=== PATIENT | female | born 1950 | race Caucasian/White ===

== ENCOUNTER 2019-12-22 08:28 | Outpatient (REF) | payer MEDICARE, SELFPAY ==
--- NOTE | 2019-12-22 | US_ITS ---
EXAMINATION: US RETROPERITONEAL LIMITED (AORTA) CLINICAL INFORMATION: AAA. COMPARISON: None TECHNIQUE: Cullen-scale, color Doppler and spectral Doppler evaluation of the abdominal aorta. FINDINGS: The aorta is normal. The measurements of the aorta in maximum AP and transverse dimensions respectively are as follows: Proximal: 2.2 x 1.9 cm. Mid: 1.7 x 1.6 cm. Distal: 1.4 x 1.3 cm. PSV: 80.7 cm/s. The measurements of the common iliac arteries in maximum AP and TRV dimensions are as follows: Right Common Iliac Artery: 0.9 x 0.7 cm. Left Common Iliac Artery: 0.9 x 0.8 cm. Incidental findings: The visualized portion of the CBD is dilated measuring 1 cm. In the visualized portion of the lower aspect liver, mild intrahepatic biliary duct dilatation is seen. Pancreatic duct measures 0.3 cm. IMPRESSION: 1. Normal caliber of the aorta. 2. Incidental findings, incompletely evaluated, includes dilatation of the intrahepatic and extrahepatic bile ducts. Previous MRI abdomen 07/08/2014 documented biliary duct dilatation, as well. Pancreatic duct is borderline prominent measuring 0.3 cm. Further evaluation with dedicated abdominal ultrasound or MRI as clinically warranted.
== END 2019-12-22 08:29 | disposition home or self-care (01) ==
LOC: HO.US 08:28
PROVIDERS: PCP Internal Medicine; Visit Provider Internal Medicine
DX: I71.4 Abdominal aortic aneurysm, without rupture (principal)
CPT/HCPCS: 76775

== ENCOUNTER → 2020-12-13 12:46 | Outpatient (REF) | payer MEDICARE, SELFPAY ==
--- NOTE | 2020-12-13 13:00 | CA_ITS ---
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 The visually estimated ejection fraction is between 65-70%. - There is moderate mitral annular calcification. There is mild mitral valve regurgitation. Findings Left Ventricle Normal left ventricular cavity size. There is normal left ventricular wall thickness. The left ventricular systolic function is normal. The visually estimated ejection fraction is between 65-70%. Possible basal inferior hypokinesis. Evidence of late diastolic filling noted; reduced mitral annular velocities; however normal left atrial size and no evidence of pulmonary hypertension; hence possible mild to moderate diastolic dysfunction. Right Ventricle Normal right ventricular cavity size and systolic function. TAPSE 2.34cm. Atria Both atria are normal in size. Aortic Valve There is a normal trileaflet aortic valve. There is no aortic valve stenosis. There is no aortic valve regurgitation. Mitral Valve There is moderate mitral annular calcification. There is mild mitral valve regurgitation. There is no mitral valve stenosis. Pulmonic Valve The pulmonic valve was not well visualized. Tricuspid Valve There is mild tricuspid valve regurgitation. The pulmonary artery systolic pressure is normal. Great Vessels The aortic annulus, sinuses of valsalva, and asc aorta are normal in size. Venous The inferior vena cava is normal in size and collapses greater than 50% with inspiration. Pericardium/Pleural There is no evidence of pericardial effusion. Prior Study Comparison No significant change compared to prior study dated: 05/17/2018. Measurements 2D Linear Measurements IVSd: 0.96 0.6-0.9/0.6-1.0 cm LVIDd: 4.07 3.9-5.3/4.2-5.9 cm LVIDd Index: 2.79 2.4-3.2/2.2-3.1 cm/m2 LVIDs: 2.38 2.0-3.6 cm LVPWd: 0.98 0.7-1.1 cm Ao Root: 2.90 2.1-3.5 cm LA Diam: 3.80 2.7-3.8/3.0-4.0 cm LAIDs Index: 2.60 1.5-2.3 cm/m2 LV Mass: 156.10 67-162/88-224 g LV Mass Index: 106.92 43-95/49-115 g/m2 LVOT Diam: 2.00 3.0+(-)1.3 cm 2D Systolic Function EF 4C: 81.40 >55% Mitral Valve MV Pk E: 1.03 MV PK A: 1.03 MV Decel Time: 141.00 E/A: 1.00 E'Lateral: 5.66 E'Medial: 6.42 E/E' Med: 16.00 E/E' Lat: 18.20 PHT: 41.00 MVA PHT: 5.37 Decel Archer: 7.30 Aortic Valve AoV Pk Donnie: 1.07 AoV Pk Grad: 5.00 LVOT LVOT Pk Donnie: 0.81 LVOT Mn Donnie: 0.55 LVOT VTI: 0.18 LVOT Pk Grad: 3.00 LVOT Mn Grad: 1.00 LVOT Diam: 2.00 LVOT Area: 3.14 Diastolic Function MV Pk E: 1.03 MV Pk A: 1.03 E/A: 1.00 E'Medial: 6.42 E/E' Med: 16.00 E' Laterial: 5.66 E/E' Lat: 18.20 Right Ventricle TAPSE (mm): 2.34 Tricuspid Valve TR Pk Donnie: 2.43 TR Pk Grad: 24.00 RA Press: 3.00 RVSP: 27.00 Great Vessels Aorta Ao Root-2D: 2.90 2.0-3.7 cm Ao Asc: 3.00 2.1-3.4 cm Ao Arch: 2.50 Updated in Other Vendor System with Status of Final Lenin Arcos MD electronically signed on 12/14/2020 11:36:18 AM with status of Final
--- NOTE | 2020-12-13 14:00 | ECG_ITS ---
Hook-up date: 2020-12-13 15:00:00 Duration: 47:07:00 Test Indications: Ectopic atrial rhythm. Medications: [id number] QRS complexes 4114 Ventricular ectopics which represent 3 % of total QRS comp. 72248 Supraventricular ectopics which represent 9 % of total QRS comp. * Paced QRS complexs which represent % of total QRS comp. VENTRICULAR ECTOPY 3879 Isolated 478 Bigeminal Cycles 107 Couplets 7 Runs 21 Beats in Runs 3 Beats LONGEST at 200 BPM at 17:25:07 2020-12-13 3 Beats FASTEST at 211 BPM at 17:27:01 2020-12-13 SUPRAVENTRICULAR ECTOPY 8969 Isolated 817 Couplets 99 Runs 349 Beats in Runs 11 Beats LONGEST at 127 BPM at 18:13:43 2020-12-13 3 Beats FASTEST at 182 BPM at 17:38:00 2020-12-13 HEART RATES 48 MIN at 23:49:42 2020-12-13 78 AVG 131 MAX at 20:16:55 2020-12-13 LONGEST RR 1.7200 secs at 23:39:49 2020-12-13 S-T LEVELS Channel 1 - 128 mm at 15:00:00 2020-12-13 - 128 mm at 15:00:00 2020-12-13 Channel 2 - 128 mm at 15:00:00 2020-12-13 - 128 mm at 15:00:00 2020-12-13 Channel 3 - 128 mm at 03:41:91 -- - 128 mm at 03:41:91 Underlying rhthm ectopic atrial rhythm; Average ventricular rate 75/min; range 48-131/min; Difficult to assess supraventricular ectopy burden due to the underlying rhythm being ectopic atrial; there are normal polarity P waves seen at times, that could be sinus; additionally, possible another focus of ectopy with short runs, longest 11 beats at 127/min; Occasional PVCs (4%); mostly isolated; some couplets, bigeminal cycles; longest 3 beats; Palpitations in diary possibly from PACs/PVCs. Referred By: Emilie Cortes Overread By: EMILIE CORTES
== END ==
LOC: HO.CARD 12:46
PROVIDERS: Visit Provider Internal Medicine
DX: I49.1 Atrial premature depolarization (principal)
CPT/HCPCS: 93225; 93226; 93306

== ENCOUNTER → 2021-01-10 12:48 | Outpatient (BNVA) | payer MEDICARE, SELFPAY | PROVIDERS: PCP Internal Medicine; Referring Provider Internal Medicine; Visit Provider Internal Medicine | DX: I49.1 Atrial premature depolarization (principal); I10 Essential (primary) hypertension; I05.9 Rheumatic mitral valve disease, unspecified; Z87.74 Personal history of (corrected) congenital malformations of heart and circulatory system | CPT/HCPCS: 93005; 99212 ==

== ENCOUNTER 2021-01-12 13:34 | Outpatient (REF) | payer MEDICARE, SELFPAY ==
--- NOTE | ~2021-01-12 | MM_ITS ---
EXAMINATION: BONE DENSITOMETRY CLINICAL INDICATION: Postmenopausal. COMPARISON: Previous BD dated 01/14/2018 and baseline BD dated 08/30/2008. TECHNIQUE: Using a [employer] DXA System (software version: 13.1) manufactured by [employer], dual-energy x-ray absorptiometry was performed of the lumbar spine and left hip. The images are of good technical quality. Summary results are attached. FINDINGS: AP SPINE L1-L4: Current: BMD 0.750 g/cm2, Z-score -1.3, T-score -3.6, osteoporosis, 2.7% decrease from previous, 18.7% decrease from baseline (<5% change is not significant). Prior: BMD 0.771 g/cm2. Baseline: BMD 0.922 g/cm2. LEFT FEMUR, NECK: Current: BMD 0.629 g/cm2, Z-score -0.9, T-score -2.9, osteoporosis. Prior: BMD 0.690 g/cm2. Baseline: BMD 0.765 g/cm2. LEFT FEMUR, TOTAL: Current: BMD 0.581 g/cm2, Z-score -1.6, T-score -3.4, osteoporosis, 10.2% decrease from previous, 22.4% decrease from baseline (<5% change is not significant). Prior: BMD 0.647 g/cm2. Baseline: BMD 0.749 g/cm2. IDENTIFIED RISK FACTORS: Osteoporosis, tobacco use (current smoker), low body weight, family history (parental hip fracture), history of fracture (adult), menopause. HISTORY OF FRACTURE: Sacrum. MEDICATIONS: Calcium supplements or multivitamin, vitamin D. MM/XR DEXA axial skeleton IMPRESSION: 1. DIAGNOSIS: Osteoporosis based on the lowest T-score value of -3.6 in the lumbar spine applying World Health Organization criteria. 2. 2. 10-YEAR FRACTURE RISK PREDICTION, FRAX: According to the guidelines, FRAX calculation should only be performed on patients in the osteopenia bone density category. Therefore, FRAX was not performed on this patient. 3. Treatment Recommendations: NOF guidelines recommend consideration for treatment in postmenopausal women and men age 50 and older presenting with the following: -A hip or vertebral (clinical or morphometric) fracture. -T-score less than or equal to -2.5 at the femoral neck or spine after appropriate evaluation to exclude secondary causes. -Low bone mass at the hip or spine and a 10-year fracture probability by FRAX of greater than or equal to 3% for hip fracture or greater than or equal to 20% for major osteoporotic fracture based on the [place] adapted WHO algorithm. 4. Other Recommendations: All treatment decisions require clinical judgment and consideration of individual patient factors, including patient preferences, comorbidities, previous drug use, risk factors not captured in the FRAX model (e.g. frailty, falls, vitamin D deficiency, increased bone turnover, interval significant decline in bone density) and possible under or overestimation of fracture risk by FRAX. Additional medical evaluation for secondary cause of low bone mineral density may be appropriate. FUTURE SCAN RECOMMENDATION: People with diagnosed cases of osteoporosis or at high risk for fracture should have regular bone mineral density tests. For patients eligible for Medicare, routine testing is allowed once every 2 years. The testing frequency can be increased to one year for patients who have rapidly progressing disease, those who are receiving or discontinuing medical therapy to restore bone mass, or have additional risk factors.
--- NOTE | ~2021-01-12 | MM_ITS ---
EXAMINATION: MM SCREENING DIGITAL BREAST TOMOSYNTHESIS, BILATERAL CLINICAL INFORMATION: Screening. Asymptomatic. The lifetime risk of breast cancer based on the Tyrer-Cuzick Model is 3.7%. COMPARISON: Mammography: November 03, 2015 and studies dating back to January 04, 2011 TECHNIQUE: Digital breast tomosynthesis is performed in both the craniocaudal and mediolateral oblique views along with computer-aided detection (CAD). Synthesized 2D images are generated from the tomosynthesis. FINDINGS: There are scattered areas of fibroglandular density (ACR BI-RADS breast composition Category b). There are no significant masses, abnormal calcifications, or other abnormalities. Stable region of mild architectural distortion seen upper outer aspect of the left breast. MM/MM tomosynthesis screening BI IMPRESSION: There are no significant changes from prior study. ASSESSMENT: BI-RADS 2: Benign RECOMMENDATION: Routine annual mammography screening. This patient's information was entered into a reminder system with a target due date for their next mammogram.
== END 2021-01-12 13:35 | disposition home or self-care (01) ==
LOC: HO.MAMMO 13:34
PROVIDERS: Visit Provider Internal Medicine
DX: Z12.31 Encounter for screening mammogram for malignant neoplasm of breast (principal); Z13.820 Encounter for screening for osteoporosis; M81.0 Age-related osteoporosis without current pathological fracture; Z78.0 Asymptomatic menopausal state; F17.200 Nicotine dependence, unspecified, uncomplicated; Z79.899 Other long term (current) drug therapy
CPT/HCPCS: 77063; 77067; 77080

== ENCOUNTER → 2021-12-19 11:04 | Outpatient (REF) | payer MEDICARE, SELFPAY ==
--- NOTE | 2021-12-19 11:07 | HM_ITS ---
Conclusion: 1. Patient was monitored for total period of 3 days 2. Baseline was normal sinus rhythm with average heart rate of 66 beats per minute 3. Frequent sinus bradycardia with 36% of the time heart rate below 60 beats per minute 4. No significant pauses noted 5. Total of 4787 PACs noted accounting for 1.7% total beats account for frequent PACs. 6. Total of 1096 PVCs noted with 0.39% total beats account for occasional PVCs 7. One 3 beat shira of nonsustained VT noted 8. Patient reported 1 event correlated with isolated PACs. MTDD
== END ==
LOC: HO.CARD 11:04
PROVIDERS: PCP Internal Medicine; Visit Provider Internal Medicine
DX: I49.1 Atrial premature depolarization (principal)
CPT/HCPCS: 93242

== ENCOUNTER → 2022-01-15 14:06 | Outpatient (BNVA) | payer MEDICARE, SELFPAY | PROVIDERS: PCP Internal Medicine; Referring Provider Internal Medicine; Visit Provider Internal Medicine | DX: I49.1 Atrial premature depolarization (principal); I10 Essential (primary) hypertension; I05.9 Rheumatic mitral valve disease, unspecified; Z87.74 Personal history of (corrected) congenital malformations of heart and circulatory system | CPT/HCPCS: 93005; 99212 ==

== ENCOUNTER 2022-04-03 08:56 | Outpatient (REF) | payer MEDICARE, SELFPAY ==
--- NOTE | ~2022-04-03 | US_ITS ---
EXAMINATION: US ABDOMEN COMPLETE CLINICAL INFORMATION: Right upper quadrant pain. COMPARISON: Ultrasound aorta 12/22/2019. MRI abdomen 07/08/2014. Ultrasound abdomen 03/03/2013 and 02/02/2011. TECHNIQUE: Real-time imaging of the abdominal viscera. FINDINGS: PANCREAS: No abnormal mass or peripancreatic inflammatory change. ABDOMINAL AORTA: There is some calcified plaque present. No abdominal aortic aneurysm. INFERIOR VENA CAVA: Visualized portions are normal. LIVER: The liver is normal in size. The liver contour is normal. Parenchymal echogenicity is normal. No suspicious focal hepatic lesion. There is again noted to be mild intrahepatic bile duct dilatation. Dense calcification within the right lobe is seen which may be related to calcified granuloma. GALLBLADDER: Surgically absent. COMMON BILE DUCT: Normal in caliber measuring 0.8 cm in diameter. RIGHT KIDNEY: Normal. No hydronephrosis. No renal calculi or focal parenchymal lesions. The kidney measures 9.4 cm in maximum dimension. LEFT KIDNEY: Within the upper pole there is a 5 mm cyst which is too small to characterize but appears to be present to some degree on previous MRI of July 08, 2014. This does not require follow-up. No hydronephrosis or renal calculi. The kidney measures 9.5 cm in maximum dimension. SPLEEN: Normal. The spleen measures 8.0 cm in maximum dimension. FREE FLUID: None. US/US abdomen complete IMPRESSION: Stable mild intrahepatic bile duct dilatation.
[2022-04-03 11:47] LABS: MANUAL DIFF FLAG NO
[2022-04-03 12:03] LABS: Basophils Percent Auto 0.9 % (0-2); Eosinophils Absolute Auto 0.1 X10*3/uL (0.0-0.4); Eosinophils Percent Auto 1.8 % (0-4); Hematocrit 41.9 % (37.0-47.0); Hemoglobin 13.8 g/dl (12.0-16.0); Imm Gran Abs Auto 0.02 X10*3/uL (0.00-0.03); Imm Gran Pct Auto 0.5 % (0.0-0.4); Lymphocytes Absolute Auto 1.2 X10*3/uL (1.2-4.9); Lymphocytes Percent Auto 27.7 % (20-40); Mean Corpuscular HGB Conc 32.9 g/dl (31.0-35.0); Mean Corpuscular Hemoglobin 29.6 pg (27.0-33.0); Mean Corpuscular Volume 89.7 fL (80.0-98.0); Mean Platelet Volume 9.9 fL (9.4-12.3); Monocytes Absolute Auto 0.4 X10*3/uL (0.1-1.2); Monocytes Percent Auto 9.6 % (2-11); Neutrophils Absolute Auto 2.6 x10*3/uL (2.0-8.3); Neutrophils Percent Auto 59.5 % (45-73); Platelet Count 168 X10*3/uL (160-400); Red Blood Count 4.67 X10*6/uL (4.20-5.50); Red Cell Distribution Width 12.6 % (11.0-16.0); White Blood Count 4.4 X10*3/uL (4.8-10.8)
[2022-04-03 12:38] LABS: Alanine Aminotransferase 13 U/L (0-31); Albumin Level 4.3 g/dL (3.5-5.0); Alkaline Phosphatase 57 U/L (39-117); Anion Gap 12 (12-20); Aspartate Amino Transferase 18 U/L (5-31); Bilirubin Total 0.4 mg/dL (0.0-1.0); Blood Urea Nitrogen 14 mg/dL (9-16); Calcium 9.3 mg/dL (8.4-10.2); Carbon Dioxide 29 mmol/L (22-29); Chloride 105 mmol/L (96-108); Cholesterol 218 mg/dL; Estimated Glomerular Filt Rate > 60; Glucose Random 93 mg/dL (60-115); HDL Cholesterol 76 mg/dL; LDL Cholesterol Calculated 128 mg/dl; Potassium 3.9 mmol/L (3.3-5.1); Sodium 142 mmol/L (135-145); Total Protein 6.8 g/dL (6.5-8.0); Triglycerides 74 mg/dL
[2022-04-03 12:59] LABS: Free T4 (Free Thyroxine) 1.22 ng/dL (0.71-1.85); Thyroid Stimulating Hormone 1.65 uIU/mL (0.32-4.0); Vitamin D 25-OH Total 8.8 ng/mL (>30)
== END 2022-04-03 08:57 | disposition home or self-care (01) ==
LOC: HO.HMGCX 08:56
PROVIDERS: PCP Internal Medicine; Visit Provider Internal Medicine
DX: R10.11 Right upper quadrant pain (principal); E78.00 Pure hypercholesterolemia, unspecified; M79.641 Pain in right hand; R35.1 Nocturia; E55.9 Vitamin D deficiency, unspecified; Z90.49 Acquired absence of other specified parts of digestive tract
CPT/HCPCS: 36415; 76700; 80053; 80061; 82306; 84439; 84443; 85025

== ENCOUNTER 2022-06-26 09:25 | Outpatient (REF) | payer MEDICARE, SELFPAY ==
--- NOTE | ~2022-06-26 | XR_ITS ---
EXAMINATION: XR HAND, RIGHT CLINICAL INFORMATION: Pain COMPARISON: None available. TECHNIQUE: PA, lateral, and oblique views of the right hand. Note, the lateral and oblique view is suboptimal. FINDINGS: Bones are diffusely osteopenic. Mild osteoarthritis of the first metacarpophalangeal joint. Small well-corticated ossicles at the first interphalangeal joint, likely from prior trauma. There are no acute fractures or dislocations of the right hand. Soft tissue structures are within normal limits. XR/XR hand RT min 3V IMPRESSION: Diffuse osteopenia and mild osteoarthritis of the first metacarpal carpal phalangeal joint. No acute fractures.
== END 2022-06-26 09:26 | disposition home or self-care (01) ==
LOC: HO.HOSX 09:25
PROVIDERS: Visit Provider Orthopaedic Surgery
DX: M18.11 Unilateral primary osteoarthritis of first carpometacarpal joint, right hand (principal)
CPT/HCPCS: 73130; 99202

== ENCOUNTER → 2023-02-14 13:50 | Outpatient (REF) | payer MEDICARE, SELFPAY ==
--- NOTE | 2023-02-14 13:53 | CA_ITS ---
Transthoracic Echocardiogram Patient (Last, First, Middle): Lianna Boyer A Gender: Female Date of : 1950 Age: 72 Procedure Date: 02/14/2023 Procedure Type: Transthoracic Echocardiogram Location: OP Height: 154.94 cm Weight: 44. kg BSA: 1.39 m2 Heart Rate: 68 bpm BP: 120 / 75 mmHg Real Estate Assessor: KEY Funes MD: Lenin Arcos MD Author Agent: Ga Gore MD Symptoms: I05.9 - Rheumatic mitral valve disease, unspecified Study Quality: Adequate ECG Rhythm: Arrhythmia Conclusions: - 1. Normal LV ejection fraction 60 65% with impaired relaxation filling pattern 2. Mildly dilated left atrium 3. Moderate mitral calcification with [id number] mitral regurgitation 4. Mildly dilated ascending aorta 3.7 cm 5. Normal RV systolic pressure 6. No gross pericardial effusion Findings Left Ventricle Normal left ventricular size, thickness, and systolic function. The visually estimated ejection fraction is between 60-65%. Spectral Doppler is indicative of an impaired relaxation filling pattern. Peak GLS is -26.1%, although with off axis LV views maybe overestimated. Right Ventricle Normal right ventricular cavity size. Atria The left atrium is mildly dilated. Interatrial shunt cannot be excluded. The right atrium is normal in size. Aortic Valve The aortic valve structure and function is likely normal. There is no aortic valve stenosis. There is no aortic valve regurgitation. Mitral Valve There is mild anterior and moderate posterior mitral leaflet thickening. There is mild mitral annular calcification. There is mild to moderate mitral valve regurgitation. There is no mitral valve stenosis. Pulmonic Valve The pulmonic valve is likely normal. There is trace pulmonic valve regurgitation. Tricuspid Valve Normal tricuspid valve structure. There is mild tricuspid valve regurgitation. The right ventricular systolic pressure is normal. The right ventricular systolic pressure is 25 mmHg. Normal right atrial pressure. There is no evidence of pulmonary hypertension. Great Vessels The pulmonary artery was not well visualized. There is mild dilatation of the ascending aorta. Venous The inferior vena cava is normal in size and collapses greater than 50% with inspiration. Pericardium/Pleural There is no evidence of pericardial effusion. Prior Study Comparison No significant change compared to prior study dated: 12/13/2020. Measurements 2D Linear Measurements IVSd: 1.22 0.6-0.9/0.6-1.0 cm LVIDd: 3.33 3.9-5.3/4.2-5.9 cm LVIDd Index: 2.40 2.4-3.2/2.2-3.1 cm/m2 LVIDs: 1.99 2.0-3.6 cm LVPWd: 1.05 0.7-1.1 cm LA Diam: 3.10 2.7-3.8/3.0-4.0 cm LAIDs Index: 2.23 1.5-2.3 cm/m2 LV Mass: 144.24 67-162/88-224 g LV Mass Index: 103.77 43-95/49-115 g/m2 LVOT Diam: 1.70 3.0+(-)1.3 cm 2D Systolic Function EF 4C: 70.10 >55% EF 2C: 61.70 >55% EF BiP: 65.80 >55% Aortic Valve AoV Pk Donnie: 1.05 AoV Mn Donnie: 0.67 AoV VTI: 0.20 AoV Pk Grad: 4.00 Aov Mn Grad: 2.00 COSTA Cont.VTI: 1.71 LVOT LVOT Pk Donnie: 0.72 LVOT Mn Donnie: 0.50 LVOT VTI: 0.15 LVOT Pk Grad: 2.00 LVOT Mn Grad: 1.00 LVOT Diam: 1.70 LVOT Area: 2.27 Right Ventricle TAPSE (mm): 15.30 TVS' Donnie: 10.60 Tricuspid Valve TR Pk Donnie: 2.37 TR Pk Grad: 22.00 RA Press: 3.00 RVSP: 25.00 Great Vessels Aorta Sinus of Valsalva: 3.60 2.0-3.5 cm Ao Asc: 3.70 2.1-3.4 cm Pulmonary Valve PV Pk Donnie: 1.00 Peak PV Grad: 4.00 Updated in Other Vendor System with Status of Final Ga Gore MD electronically signed on 02/15/2023 1:55:31 PM with status of Final
--- NOTE | 2023-02-14 13:53 | HM_ITS ---
* Total monitoring time 3 days. * Underlying rhythm is sinus. Average ventricular rate 71/Min. Range 48 to 108/Min. * Frequent supraventricular ectopy with a burden of 3.6%. Brief runs noted. Longest is 25 beats. Fastest 190/Min. * Frequent ventricular ectopy with a burden of 1.9%. 5 short runs. Longest 4 beats. Multiple morphologies. * No significant pauses or AV blocks. * Palpitations in patient diary correlates with supraventricular and ventricular ectopy. MTDD
== END ==
LOC: HO.CARD 13:50
PROVIDERS: PCP Internal Medicine; Visit Provider Internal Medicine
DX: I50.9 Heart failure, unspecified (principal); I49.1 Atrial premature depolarization; Z87.74 Personal history of (corrected) congenital malformations of heart and circulatory system
CPT/HCPCS: 93242; 93306; 93356

== ENCOUNTER → 2023-02-14 13:53 | Outpatient (BNV) | payer MEDICARE, SELFPAY | PROVIDERS: PCP Internal Medicine; Visit Provider Internal Medicine Cardiovascular Disease | DX: I47.10 Supraventricular tachycardia, unspecified (principal) | CPT/HCPCS: 93244; 93306 ==

== ENCOUNTER 2023-04-01 14:05 | Outpatient (AMB) | payer MEDICARE, SELFPAY ==
--- NOTE | 2023-04-01 14:07 | MHC.OFFVIS ---
Intake Vital Signs 04/01/23 14:11 Height 5 ft 2 in Weight 96 lb 8.999 oz BMI 17.7 BP 130/72 Blood Pressure Location Lt brachial Position Sitting Pulse 70 Intake Visit Reasons: follow up echo/holter Intake Note: follow up w/ EKG [place] Required: No Accompanied by: Self / Same As Patient Allergies Iodinated Contrast Media [IV Dye, Iodine Containing] Allergy (Severe, Verified 04/01/23 14:11) ANAPHYLAXIS Medication List - Last Reconciled 04/01/23 by Lenin Arcos MD amlodipine 5 mg PO DAILY calcium carbonate-vitamin D3 600 mg-20 mcg (800 unit) (Caltrate 600 plus D) 1 tab PO DAILY cholecalciferol (vitamin D3) 75 mcg PO DAILY clonazepam (Klonopin) 1 mg PO BID oxycodone 5 mg PO Q8H PRN HPI HPI Comments History of Present Illness Details Lianna returns for follow-up. She has a history of remote ASD closure from several decades ago. Otherwise, has hypertension for which she is on amlodipine. She also has undergone a cardiac catheterization few years ago that was unremarkable. Overall, no new concerns. She states she is feeling fine. REPLACED BY [facility] Medical History Ectopic atrial rhythm Essential hypertension Surgical History History of cholecystectomy History of umbilical hernia repair History of craniotomy History of cardiac catheterization (~05/30/18) History of atrial septal defect repair Family History Father No problems noted. Mother No problems noted. 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 Review of Systems Const Denies weakness ENT Denies dizziness Card Denies chest pain, Denies chest pain with activity, Denies syncope, Denies rapid heart rate, Denies pedal edema, Denies edema, Denies leg edema, Denies lightheadedness, Denies palpitations, Denies dyspnea, Denies dyspnea on exertion and Denies orthopnea Resp Denies cough, Denies dyspnea and Denies dyspnea on exertion GI Denies hematochezia and Denies change in stool character Musc Denies abnormal gait, Denies muscle cramps, Denies muscle weakness, Denies numbness, Denies radiating pain into limb and Denies tingling Neuro Denies abnormal gait, Denies dizziness, Denies syncope, Denies numbness, Denies tingling and Denies weakness Endo Denies palpitations Physical Exam Vital Signs: Last Vital Signs Pulse 70 04/01/23 14:11 BP 130/72 04/01/23 14:11 BMI result Body Mass Index 17.7 Const General: comfortable and no acute distress Orientation/consciousness: patient oriented x3 HEENT Other: Unremarkable Head: Yes normal to inspection Neck Neck: Yes normal visual inspection Chest Chest palpation & inspection: normal inspection of the chest Resp Auscultation: clear to auscultation bilaterally Cardio Palpation: normal PMI Heart sounds: S1 normal heart sound present, S2 normal heart sound present, no gallops, no murmurs and no rubs GI Palpation (GI): Soft to palpation Back/Spine/Pelvis Other: unremarkable Skin General skin exam: no rashes or lesions noted Neuro General: patient oriented x3 Extrem General: Yes normal to inspection Psych Mental Status: mental status grossly normal Office Procedures EKG Details: EKG with sinus rhythm at 70/Min; some PACs, lateral nonspecific ST-T changes. [id number], Complete Assessment & Plan Assessment & Plan (1) Ectopic atrial rhythm: Code(s): I49.1 - Atrial premature depolarization Plan: In the Holter, there is frequent supraventricular ectopy but no clear-cut evidence of atrial fibrillation. Will monitor periodically. (2) Essential hypertension: Code(s): I10 - Essential (primary) hypertension Plan: Continue amlodipine. (3) Status post atrial septal defect closure: Code(s): Z87.74 - Personal history of (corrected) congenital malformations of heart and circulatory system Plan: Remote procedure many decades ago. No recent issues. (4) Mitral annular calcification: Code(s): I05.9 - Rheumatic mitral valve disease, unspecified Plan: Moderate mitral annular calcification with [id number] mitral regurgitation. At this time, not hemodynamically significant. Can be monitored. Coding Level of Care Code Est Pt Level 4 (55847) Diagnoses Ectopic atrial rhythm I49.1 Essential hypertension I10 Status post atrial septal defect closure Z87.74 Mitral annular calcification I05.9 CPT Codes EKG - CPT: 09061-[id number], Complete ([id number])
[2023-04-01 14:11] VITALS: BP 130/72; PULSE 70; BMI 17.7
== END 2023-04-01 14:29 | disposition home or self-care (01) ==
PROVIDERS: PCP Internal Medicine; Visit Provider Internal Medicine
DX: I49.1 Atrial premature depolarization (principal); I10 Essential (primary) hypertension; Z87.74 Personal history of (corrected) congenital malformations of heart and circulatory system; I05.9 Rheumatic mitral valve disease, unspecified
CPT/HCPCS: 93010; 99214

== ENCOUNTER → 2023-04-01 14:05 | Outpatient (BNVA) | payer MEDICARE, SELFPAY | PROVIDERS: PCP Internal Medicine; Visit Provider Internal Medicine | DX: I49.1 Atrial premature depolarization (principal); I10 Essential (primary) hypertension; I05.9 Rheumatic mitral valve disease, unspecified; Z87.74 Personal history of (corrected) congenital malformations of heart and circulatory system | CPT/HCPCS: 93005; 99212 ==

== ENCOUNTER 2023-11-16 08:55 | Outpatient (REF) | payer MEDICARE, SELFPAY ==
--- NOTE | ~2023-11-16 | XR_ITS ---
EXAMINATION: XR CHEST 2 VIEWS CLINICAL INFORMATION: Cough. COMPARISON: Chest radiograph dated 05/16/2018. TECHNIQUE: Frontal and lateral views of the chest were obtained. FINDINGS: The heart, great vessels, pulmonary vasculature and mediastinum are normal. There has been a prior median sternotomy. The lungs show no focal infiltrate, effusion or pneumothorax. There is biapical pleural thickening. There is no acute osseous abnormality. XR/XR chest 2V IMPRESSION: No active cardiopulmonary disease. Electronically signed by: Bentley Smith MD 12/05/2023 04:55 PM EDT RP
[2023-11-16 11:09] LABS: MANUAL DIFF FLAG NO
[2023-11-16 11:17] LABS: Eosinophils Absolute Auto 0.1 X10*3/uL (0.0-0.4); Eosinophils Percent Auto 3.1 % (0-4); Hematocrit 42.9 % (37.0-47.0); Imm Gran Abs Auto 0.02 X10*3/uL (0.00-0.03); Imm Gran Pct Auto 0.5 % (0.0-0.4); Lymphocytes Percent Auto 23.9 % (20-40); Mean Corpuscular HGB Conc 32.6 g/dl (31.0-35.0); Mean Corpuscular Hemoglobin 29.2 pg (27.0-33.0); Mean Corpuscular Volume 89.6 fL (80.0-98.0); Mean Platelet Volume 10.6 fL (9.4-12.3); Monocytes Absolute Auto 0.4 X10*3/uL (0.1-1.2); Monocytes Percent Auto 8.4 % (2-11); Neutrophils Absolute Auto 2.7 x10*3/uL (2.0-8.3); Neutrophils Percent Auto 63.1 % (45-73); Platelet Count 159 X10*3/uL (160-400); Red Blood Count 4.79 X10*6/uL (4.20-5.50); White Blood Count 4.2 X10*3/uL (4.8-10.8)
[2023-11-16 11:27] LABS: Appearance Urine Clear; Color Urine Yellow; Glucose Urine UA Negative (Negative); Leukocyte Esterase Urine Small (1+) (Negative); Nitrite Urine Negative (Negative); PH 6.5 (5.0-9.0); UMIC TRIGGER UACC YES; Urine Blood Negative (Negative); Urine Ketones Negative (Negative); Urine Protein Negative (Neg-Trace)
[2023-11-16 11:42] LABS: Alanine Aminotransferase 19 U/L (0-31); Albumin Level 4.3 g/dL (3.5-5.0); Alkaline Phosphatase 65 U/L (39-117); Anion Gap 13 (12-20); Aspartate Amino Transferase 21 U/L (5-31); Bilirubin Total 0.4 mg/dL (0.0-1.0); Blood Urea Nitrogen 9 mg/dL (9-16); Calcium 9.8 mg/dL (8.4-10.2); Carbon Dioxide 28 mmol/L (22-29); Chloride 106 mmol/L (96-108); Cholesterol 183 mg/dL (<200); Estimated Glomerular Filt Rate > 60; Glucose Random 98 mg/dL (60-115); HDL Cholesterol 73 mg/dL (>40); LDL Cholesterol Calculated 94 mg/dL (<100); Sodium 143 mmol/L (135-145); Total Protein 7.1 g/dL (6.5-8.0); Triglycerides 82 mg/dL (<150)
[2023-11-16 11:55] LABS: Bacteria Urine None Seen (None Seen); Hyaline Casts Urine 0-2 /LPF (0-2); RBC Urine 0-2 /HPF (0-2); UACC Culture Trigger YES; WBC Urine 0-5 /HPF (0-5)
[2023-11-16 12:00] LABS: Free T4 (Free Thyroxine) 1.05 ng/dL (0.71-1.85); Vitamin D 25-OH Total 19.1 ng/mL (>30)
== END 2023-11-16 08:56 | disposition home or self-care (01) ==
LOC: HO.HMGCX 08:55
PROVIDERS: PCP Internal Medicine; Visit Provider Internal Medicine
DX: R05.2 Subacute cough (principal); I10 Essential (primary) hypertension; E78.00 Pure hypercholesterolemia, unspecified; E55.9 Vitamin D deficiency, unspecified; R35.1 Nocturia
CPT/HCPCS: 36415; 71046; 80053; 80061; 81001; 82306; 84439; 85025; 87086

== ENCOUNTER 2024-05-26 12:43 | Outpatient (AMB) | payer MEDICARE, SELFPAY ==
[2024-05-26 12:54] VITALS: BP 118/60; PULSE 77; BMI 17.3
--- NOTE | 2024-05-26 12:54 | A.OFFVIS_ITS ---
Vital Signs 05/26/24 12:54 Height 5 ft 2 in Weight 94 lb 12.78 oz BMI 17.3 BP 118/60 Blood Pressure Location Lt brachial Position Sitting Pulse 77 Pulse Source Monitor Intake Visit Reasons: 1 yr f/up Allergies Iodinated Contrast Media [IV Dye, Iodine Containing] Allergy (Severe, Verified 04/01/23 14:11) ANAPHYLAXIS Medication List - Last Reconciled 05/26/24 by Lenin Arcos MD amlodipine 5 mg PO DAILY calcium carbonate-vitamin D3 600 mg-20 mcg (800 unit) (Caltrate plus D) 1 tab PO DAILY cholecalciferol (vitamin D3) 75 mcg PO DAILY clonazepam (Klonopin) 1 mg PO BID oxycodone 5 mg PO Q8H PRN HPI Comments Details: Lianna returns for follow-up. She has a history of remote ASD closure from several decades ago. Has hypertension for which she is on amlodipine. She also has undergone a cardiac catheterization few years ago that was unremarkable. She states that she feels good. Rare palpitations but otherwise she feels fine for the most part. FOR[facility]LY [facility], LATER [facility] Medical History Ectopic atrial rhythm Essential hypertension Surgical History History of cholecystectomy History of umbilical hernia repair History of craniotomy History of cardiac catheterization (~05/30/18) History of atrial septal defect repair Family History Father No problems noted. Mother No problems noted. 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 Review of Systems Const Denies weakness ENT Denies dizziness Card Denies chest pain, Denies chest pain with activity, Denies syncope, Denies rapid heart rate, Denies pedal edema, Denies edema, Denies leg edema, Denies lightheadedness, Denies palpitations, Denies dyspnea, Denies dyspnea on exertion and Denies orthopnea Resp Denies cough, Denies dyspnea and Denies dyspnea on exertion GI Denies hematochezia and Denies change in stool character Musc Denies abnormal gait, Denies muscle cramps, Denies muscle weakness, Denies numbness, Denies radiating pain into limb and Denies tingling Neuro Denies abnormal gait, Denies dizziness, Denies syncope, Denies numbness, Denies tingling and Denies weakness Endo Denies palpitations Physical Exam Vital Signs: Last Vital Signs Pulse 77 05/26/24 12:54 BP 118/60 05/26/24 12:54 BMI result Body Mass Index 17.3 Const General: comfortable and no acute distress Orientation/consciousness: patient oriented x3 HEENT Other: Unremarkable Head: Yes normal to inspection Neck Neck: Yes normal visual inspection Chest Chest palpation & inspection: normal inspection of the chest Resp Auscultation: clear to auscultation bilaterally Cardio Palpation: normal PMI Heart sounds: S1 normal heart sound present, S2 normal heart sound present, no gallops, no murmurs and no rubs GI Palpation (GI): Soft to palpation Back/Spine/Pelvis Other: unremarkable Skin General skin exam: no rashes or lesions noted Neuro General: patient oriented x3 Extrem General: Yes normal to inspection Psych Mental Status: mental status grossly normal Office Procedures EKG Details: EKGs suggestive of atrial tachycardia with a 2-1 block. Atrial rate around 150/Min. [id number], Complete Assessment & Plan Assessment & Plan (1) Ectopic atrial rhythm: Code(s): I49.1 - Atrial premature depolarization Category: Medical Plan: In prior Holter, there is frequent supraventricular ectopy, but no clear-cut evidence of atrial fibrillation. Today's EKG shows atrial tachycardia with 2-1 block. Obtain Holter monitor. Repeat echocardiogram. (2) Essential hypertension: Code(s): I10 - Essential (primary) hypertension Category: Medical Plan: Continue amlodipine. (3) Status post atrial septal defect closure: Code(s): Z87.74 - Personal history of (corrected) congenital malformations of heart and circulatory system Category: Surgical Plan: Remote procedure many decades ago. No recent issues. (4) Mitral annular calcification: Code(s): I05.9 - Rheumatic mitral valve disease, unspecified Category: Medical Plan: Moderate mitral annular calcification with [id number] mitral regurgitation. We will follow up on echocardiogram. Orders: Orders CA echo transthoracic complete Today I49.1 - Atrial premature depolarization ECG 3 day holter monitor Today I49.1 - Atrial premature depolarization Coding Level of Care Code Est Pt Level 4 (21877) Complex EM visit Add On G2211 Diagnoses Ectopic atrial rhythm I49.1 Essential hypertension I10 Status post atrial septal defect closure Z87.74 Mitral annular calcification I05.9 CPT Codes EKG - CPT: 10539-[id number], Complete ([id number])
== END 2024-05-26 13:14 | disposition home or self-care (01) ==
PROVIDERS: PCP Internal Medicine; Visit Provider Internal Medicine
DX: I49.1 Atrial premature depolarization (principal); I10 Essential (primary) hypertension; Z87.74 Personal history of (corrected) congenital malformations of heart and circulatory system; I05.9 Rheumatic mitral valve disease, unspecified
CPT/HCPCS: 93010; 99214; G2211

== ENCOUNTER → 2024-05-26 12:43 | Outpatient (BNVA) | payer MEDICARE, SELFPAY | PROVIDERS: PCP Internal Medicine; Visit Provider Internal Medicine | DX: I49.1 Atrial premature depolarization (principal); I10 Essential (primary) hypertension; I05.9 Rheumatic mitral valve disease, unspecified; R94.31 Abnormal electrocardiogram [ECG] [EKG]; Z87.74 Personal history of (corrected) congenital malformations of heart and circulatory system | CPT/HCPCS: 93005; 99212 ==

== ENCOUNTER → 2024-06-22 13:40 | Outpatient (REF) | payer MEDICARE, SELFPAY ==
--- NOTE | 2024-06-22 13:44 | CA_ITS ---
Transthoracic Echocardiogram Patient (Last, First, Middle): Lianna Boyer A Gender: Female Date of : 1950 Age: 73 Procedure Date: 06/22/2024 Procedure Type: Transthoracic Echocardiogram Location: OP Height: 157.48 cm Weight: 42.64 kg BSA: 1.39 m2 Heart Rate: 70 bpm BP: 142 / 78 mmHg Contract Writer: SB Referring MD: Lenin Arcos MD Symptoms: I49.1 - Atrial premature depolarization Study Quality: Technically Difficult ECG Rhythm: Sinus Conclusions: - The left ventricular systolic function is normal. The calculated ejection fraction is 64% by biplane method. - Evidence suggests grade II (moderate) diastolic dysfunction. - The left atrium is moderately dilated. - There is moderate mitral annular calcification. Findings Left Ventricle Normal left ventricular cavity size. There is normal left ventricular wall thickness. The left ventricular systolic function is normal. The calculated ejection fraction is 64% by biplane method. There is no evidence of regional wall motion abnormalities. Evidence suggests grade II (moderate) diastolic dysfunction. Right Ventricle Normal right ventricular cavity size and systolic function. Atria The left atrium is moderately dilated. The right atrium is normal in size. Aortic Valve There is a normal trileaflet aortic valve. There is no aortic valve stenosis. There is no aortic valve regurgitation. Mitral Valve There is moderate mitral annular calcification. There is mild mitral valve regurgitation. There is no mitral valve stenosis. Pulmonic Valve There is trace pulmonic valve regurgitation. Tricuspid Valve There is mild tricuspid valve regurgitation. There is no evidence of pulmonary hypertension. Great Vessels The asc aorta is normal in size. Venous The inferior vena cava is normal in size and collapses greater than 50% with inspiration. Pericardium/Pleural There is no evidence of pericardial effusion. Prior Study Comparison No significant change compared to prior study dated: 02/14/2023. Measurements 2D Linear Measurements IVSd: 0.93 0.6-0.9/0.6-1.0 cm LVIDd: 3.96 3.9-5.3/4.2-5.9 cm LVIDd Index: 2.85 2.4-3.2/2.2-3.1 cm/m2 LVIDs: 2.51 2.0-3.6 cm LVPWd: 0.88 0.7-1.1 cm LA Diam: 3.90 2.7-3.8/3.0-4.0 cm LAIDs Index: 2.81 1.5-2.3 cm/m2 LV Mass: 135.10 67-162/88-224 g LV Mass Index: 97.19 43-95/49-115 g/m2 LVOT Diam: 2.40 3.0+(-)1.3 cm 2D Systolic Function EF 4C: 65.70 >55% EF 2C: 63.50 >55% EF BiP: 64.00 >55% Mitral Valve MV VTI: 0.32 MV Pk Donnie: 1.09 MV Mn Donnie: 0.66 MV Pk Grad: 5.00 MV Mn Grad: 2.00 MV Pk E: 1.06 MV PK A: 0.79 MV Decel Time: 275.00 E/A: 1.30 E'Lateral: 5.11 E'Medial: 3.70 E/E' Med: 28.60 E/E' Lat: 20.70 PHT: 81.00 MVA PHT: 2.72 MVA Continuity: 2.22 Decel [place]: 3.85 Aortic Valve AoV Pk Donnie: 0.90 AoV Pk Grad: 3.00 COSTA: 3.88 LVOT LVOT Pk Donnie: 0.69 LVOT Mn Donnie: 0.52 LVOT VTI: 0.16 LVOT Pk Grad: 2.00 LVOT Mn Grad: 1.00 LVOT Diam: 2.40 LVOT Area: 4.52 Diastolic Function MV Pk E: 1.06 MV Pk A: 0.79 E/A: 1.30 E'Medial: 3.70 E/E' Med: 28.60 E' Laterial: 5.11 E/E' Lat: 20.70 Right Ventricle TAPSE (mm): 19.40 TVS' Donnie: 13.10 Tricuspid Valve TR Pk [place]ie: 2.13 TR Pk Grad: 18.00 RA Press: 8.00 RVSP: 26.00 Great Vessels Aorta Sinus of Valsalva: 3.30 2.0-3.5 cm Ao Asc: 3.40 2.1-3.4 cm Pulmonary Valve PV Pk Donnie: 1.05 Peak PV Grad: 4.00 Updated in Other Vendor System with Status of Final Lenin Arcos MD electronically signed on 06/23/2024 1:09:59 PM with status of Final
== END ==
LOC: HO.CARD 13:40
PROVIDERS: PCP Internal Medicine; Visit Provider Internal Medicine
DX: I49.1 Atrial premature depolarization (principal)
CPT/HCPCS: 93242; 93306

== ENCOUNTER → 2024-06-22 13:44 | Outpatient (BNV) | payer MEDICARE, SELFPAY | PROVIDERS: PCP Internal Medicine; Visit Provider Internal Medicine | DX: I50.30 Unspecified diastolic (congestive) heart failure (principal); I34.0 Nonrheumatic mitral (valve) insufficiency; I36.1 Nonrheumatic tricuspid (valve) insufficiency | CPT/HCPCS: 93306 ==

== ENCOUNTER 2024-07-01 14:22 | Outpatient (AMB) | payer MEDICARE, SELFPAY ==
--- NOTE | 2024-07-01 14:29 | MHC.OFFVIS ---
Vital Signs 07/01/24 14:30 Height 5 ft 2 in Weight 90 lb 6.232 oz BMI 16.5 BP 126/62 Blood Pressure Location Lt brachial Position Sitting Pulse 62 Pulse Source Pulse Oximeter Intake Visit Reasons: 6 wk f/up echo/ holter Allergies Iodinated Contrast Media [IV Dye, Iodine Containing] Allergy (Severe, Verified 04/01/23 14:11) ANAPHYLAXIS Medication List - Last Reconciled 07/01/24 by Lenin Arcos MD amlodipine 5 mg PO DAILY calcium carbonate-vitamin D3 600 mg-20 mcg (800 unit) (Caltrate plus D) 1 tab PO DAILY cholecalciferol (vitamin D3) 75 mcg PO DAILY clonazepam (Klonopin) 1 mg PO BID oxycodone 5 mg PO Q8H PRN HPI Comments Details: Lianna returns for follow-up. She has a history of remote ASD closure from several decades ago. Has hypertension for which she is on amlodipine. She also has undergone a cardiac catheterization few years ago that was unremarkable. She gets some palpitations off and on but otherwise feels good. No other cardiac concerns. Has completed an echocardiogram/Holter monitor. [facility] Medical History Ectopic atrial rhythm Essential hypertension Surgical History History of cholecystectomy History of umbilical hernia repair History of craniotomy History of cardiac catheterization (~05/30/18) History of atrial septal defect repair Family History Father No problems noted. Mother No problems noted. 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 Review of Systems Const Denies weakness ENT Denies dizziness Card Denies chest pain, Denies chest pain with activity, Denies syncope, Denies rapid heart rate, Denies pedal edema, Denies edema, Denies leg edema, Denies lightheadedness, Denies palpitations, Denies dyspnea, Denies dyspnea on exertion and Denies orthopnea Resp Denies cough, Denies dyspnea and Denies dyspnea on exertion GI Denies hematochezia and Denies change in stool character Musc Denies abnormal gait, Denies muscle cramps, Denies muscle weakness, Denies numbness, Denies radiating pain into limb and Denies tingling Neuro Denies abnormal gait, Denies dizziness, Denies syncope, Denies numbness, Denies tingling and Denies weakness Endo Denies palpitations Physical Exam Vital Signs: Last Vital Signs Pulse 62 07/01/24 14:30 BP 126/62 07/01/24 14:30 BMI result Body Mass Index 16.5 Const General: comfortable and no acute distress Orientation/consciousness: patient oriented x3 HEENT Other: Unremarkable Head: Yes normal to inspection Neck Neck: Yes normal visual inspection Chest Chest palpation & inspection: normal inspection of the chest Resp Auscultation: clear to auscultation bilaterally Cardio Palpation: normal PMI Heart sounds: S1 normal heart sound present, S2 normal heart sound present, no gallops, no murmurs and no rubs GI Palpation (GI): Soft to palpation Back/Spine/Pelvis Other: unremarkable Skin General skin exam: no rashes or lesions noted Neuro General: patient oriented x3 Extrem General: Yes normal to inspection Psych Mental Status: mental status grossly normal Assessment & Plan Assessment & Plan (1) Ectopic atrial rhythm: Code(s): I49.1 - Atrial premature depolarization Category: Medical Plan: In the recent EKG, atrial tachycardia with 2-1 block. In the Holter monitor, frequent supraventricular ectopy with a burden of about 5%. Short runs of SVT. Can take small dose of beta-blockers. We discussed about this today and she agrees. Holter in 1 year to check for atrial fibrillation. (2) PVC (premature ventricular contraction): Code(s): I49.3 - Ventricular premature depolarization Category: Medical Plan: Overall burden of 1.6% with short runs. Beta-blockers as above. (3) Diastolic dysfunction: Code(s): I51.89 - Other ill-defined heart diseases Category: Medical Plan: Moderate diastolic dysfunction on echocardiogram. Clinically, no overt heart failure symptoms or signs. (4) Mitral annular calcification: Code(s): I05.9 - Rheumatic mitral valve disease, unspecified Category: Medical Plan: Moderate mitral annular calcification with [id number] mitral regurgitation. We will follow up on echocardiogram. (5) Status post atrial septal defect closure: Code(s): Z87.74 - Personal history of (corrected) congenital malformations of heart and circulatory system Category: Surgical Plan: Remote procedure many decades ago. No recent issues. (6) Essential hypertension: Code(s): I10 - Essential (primary) hypertension Category: Medical Plan: Continue amlodipine. Orders: Orders ECG 7 day holter monitor 1 Year R00.2 - Palpitations Medications: New metoprolol succinate ER (Toprol XL) 25 mg PO DAILY 90 tabs 1RF Coding Level of Care Code Est Pt Level 4 (96880) Complex EM visit Add On G2211 Diagnoses Ectopic atrial rhythm I49.1 PVC (premature ventricular contraction) I49.3 Diastolic dysfunction I51.89 Mitral annular calcification I05.9 Status post atrial septal defect closure Z87.74 Essential hypertension I10
[2024-07-01 14:30] VITALS: BP 126/62; PULSE 62; BMI 16.5
== END 2024-07-01 14:51 | disposition home or self-care (01) ==
LOC: HO.HCS 14:23
PROVIDERS: PCP Internal Medicine; Visit Provider Internal Medicine
DX: I49.1 Atrial premature depolarization (principal); I49.3 Ventricular premature depolarization; I05.9 Rheumatic mitral valve disease, unspecified; I11.9 Hypertensive heart disease without heart failure; Z87.74 Personal history of (corrected) congenital malformations of heart and circulatory system
CPT/HCPCS: 99214; G2211

== ENCOUNTER → 2024-07-01 14:22 | Outpatient (BNVA) | payer MEDICARE, SELFPAY | PROVIDERS: PCP Internal Medicine; Visit Provider Internal Medicine | DX: I11.0 Hypertensive heart disease with heart failure (principal); I50.9 Heart failure, unspecified; I49.1 Atrial premature depolarization; I49.3 Ventricular premature depolarization; R00.2 Palpitations; F17.210 Nicotine dependence, cigarettes, uncomplicated; Z87.74 Personal history of (corrected) congenital malformations of heart and circulatory system; Z79.899 Other long term (current) drug therapy | CPT/HCPCS: 99212 ==

== ENCOUNTER 2024-07-29 12:53 | Inpatient (IN) | payer MEDICARE, SELFPAY ==
[2024-07-29] VITALS (10 sets, daily range): BP systolic 100–146; BP diastolic 66–97; PULSE 59–147; RESP 16–20; TEMP 36.6–36.9; O2SAT 94–99; BMI 18.2; BMI 18.3
--- NOTE | ~2024-07-29 | XR_ITS ---
EXAMINATION: XR CHEST CLINICAL INFORMATION: chest pain COMPARISON: 11/16/2023. TECHNIQUE: Frontal view of the chest was obtained. FINDINGS: There has been a prior median sternotomy. The cardiac, hilar, and mediastinal contours appear normal. Aortic mural calcifications. The lungs are diffusely hyperaerated, with flattened hemidiaphragms, however they are clear bilaterally. No pneumothorax or effusion. No focal osseous or soft tissue abnormality. XR/XR chest 1V IMPRESSION: COPD. No active superimposed disease. Electronically signed by: Viany Drake MD 07/29/2024 01:32 PM EDT
--- NOTE | 2024-07-29 12:56 | ECG_ITS ---
Test Reason : a-fib Blood Pressure : */* mmHG Vent. Rate : 144 BPM Atrial Rate : 288 BPM P-R Int : * ms QRS Dur : 120 ms QT Int : 332 ms P-R-T Axes : 266 60 18 degrees QTcB Int : 514 ms Atrial flutter with 2:1 A-V conduction Septal infarct , age undetermined Abnormal ECG When compared with ECG of 20-May-2018 09:17, Atrial flutter with 2 to 1 block has replaced Normal sinus rhythm Referred By: Kayla Poole Electronically Signed By: DRAGAN GRACIA MD
--- NOTE | 2024-07-29 13:17 | ED.ARRPALP ---
HPI - Arrhythmia/Palpitations General Chief Complaint: Arrhythmia/Palpitations Stated Complaint: Afib Time Seen by Provider: 07/29/24 13:08 Source: patient Mode of arrival: ambulatory Limitations: no limitations History of Present Illness HPI narrative: This is a 73 years old the patient presented to the emergency department complaining of palpitation palpitation has been going on for about 2 weeks she visited the primary care physician he has a she will was diagnosed with a an arrhythmia she refused to come to the hospital she was started on Eliquis she took 2 doses of Eliquis 1 yesterday 1 this morning. She arrived to the ED with a heart rate of 140 MD complaint: rapid heart beat Onset (ago): week(s) (2) Duration: constant Severity: moderate Associated symptoms: denies other symptoms Related Data Previous Rx's ?Medication ?Instructions ?Recorded calcium 600 mg (as carbonate)-vit 1 tab PO DAILY #30 tabs 08/08/20 D3 20 mcg (800 unit) chewable tablet (Caltrate plus D) cholecalciferol (vitamin D3) 75 75 mcg PO DAILY #30 tabs 08/08/20 mcg (3,000 unit) tablet clonazepam 1 mg tablet (Klonopin) 1 mg PO BID #30 tabs 08/08/20 oxycodone 5 mg tablet 5 mg PO Q8H PRN pain #10 tabs 08/08/20 amlodipine 5 mg tablet 5 mg PO DAILY #90 tabs 02/17/24 metoprolol succinate 25 mg 25 mg PO DAILY #90 tabs 07/01/24 tablet,extended release 24 hr (Toprol XL) Allergies Allergy/AdvReac Type Severity Reaction Status Date / Time Iodinated Contrast Media Allergy Severe ANAPHYLAXIS Verified 07/29/24 13:09 [IV Dye, Iodine Containing] Review of Systems Constitutional: Constitutional: Reports no additional constitutional complaints ENT: Reports system reviewed and no additional complaints, except as documented Respiratory: Respiratory: Reports no additional respiratory complaints PMFSH Past Medical History Attestation statement: The following information was validated with the patient. Medical History Essential hypertension Ectopic atrial rhythm Surgical History History of cholecystectomy History of umbilical hernia repair History of craniotomy History of cardiac catheterization (~05/30/18) History of atrial septal defect repair Family History Family History Father No problems noted. Mother No problems noted. 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 Physical Exam Vital Signs: Vital Signs: Last Vital Signs Temp 98.4 F 07/29/24 13:02 Pulse 74 07/29/24 14:46 Resp 18 07/29/24 14:46 BP 100/75 07/29/24 14:46 Pulse Ox 97 07/29/24 13:51 O2 Del Method Room Air 07/29/24 14:46 O2 Flow Rate 97 07/29/24 14:46 BMI result Body Mass Index 18.2 Not acute distress looks well Const: General: cooperative Nutritional Appearance: average body habitus Orientation/consciousness: patient oriented x3 HEENT: Head: Yes normal to inspection Ears: hearing grossly normal bilaterally General nose exam: Normal external nose present Face and sinus: Yes normal facial exam Mouth: Normal oral and palatal mucosa present Throat: Yes posterior oropharynx normal Neck: Neck: Yes normal visual inspection Chest: Chest palpation & inspection: normal inspection of the chest Resp: Effort & Inspection: normal respiratory effort Auscultation: clear to auscultation bilaterally Cardio: Jugular venous distension: no JVD Rate: tachycardic Rhythm: regular rhythm GI: Inspection: Yes normal to inspection Palpation (GI): Soft to palpation, not firm and nontender : General: Yes no CVA tenderness Back/Spine/Pelvis: Back: no CVA tenderness Skin: General skin exam: no rashes or lesions noted, elasticity normal and turgor normal Lesions: no lesions Rashes: no rashes Neuro: General: patient oriented x3 and no focal motor deficits Cranial nerves: Yes CN's II-XII intact bilaterally Course Reevaluation(s) Reevaluation #1: Rate better on IV Cardizem anticipate admission Time: 14:50 Medications Administered Generic Name Dose Route Start Last Admin Trade Name Freterese PRN Reason Stop Dose Admin Diltiazem HCl 125 mg/ Sodium 125 mls @ 0 mls/hr 07/29/24 13:30 07/29/24 13:43 Chloride IVCONT 10 mg/hr .Q0M SOULEYMANE 10 mls/hr Administration Protocol Per Protocol Discontinued Medications Generic Name Dose Route Start Last Admin Trade Name Freq PRN Reason Stop Dose Admin Diltiazem HCl 15 mg 07/29/24 13:22 07/29/24 13:35 Diltiazem Hcl 50 Mg/10 Ml Vial IVPUSH 07/29/24 13:23 15 mg STAT STA Administration Medical Decision Making Medical Decision Making [facility] Narrative: Patient is here complaining of palpitation found to be in flutter with rapid ventricular response we will get labs administer IV diltiazem Differential Diagnosis Differential Diagnoses: The differential diagnosis associated with the presentation includes Rapid atrial flutter/rapid AFib/SVT Admission/Observation Consideration of admission/observation: Escalation of care including admission/observation considered Consult Healthcare Provider Management of the patient was discussed with: Hospitalist Lab Data [facility] Lab Attestation statement: I reviewed the patient's lab results. 07/29/24 13:35 07/29/24 13:35 Labs: Lab Results 07/29/24 Range/Units 13:35 WBC 5.8 (4.8-10.8) X10*3/uL RBC 4.81 (4.20-5.50) X10*6/uL Hgb 14.1 (12.0-16.0) g/dl Hct 43.8 (37.0-47.0) % MCV 91.1 (80.0-98.0) fL MCH 29.3 (27.0-33.0) pg MCHC 32.2 (31.0-35.0) g/dl RDW 13.6 (11.0-16.0) % Plt Count 160 (160-400) X10*3/uL MPV 9.5 (9.4-12.3) fL Immature Gran % (Auto) 0.3 (0.0-0.4) % Neut % (Auto) 71.1 (45-73) % Lymph % (Auto) 20.8 (20-40) % [place] % (Auto) 6.4 (2-11) % Eos % (Auto) 0.9 (0-4) % Baso % (Auto) 0.5 (0-2) % Lymph # (Auto) 1.2 (1.2-4.9) X10*3/uL [place] # (Auto) 0.4 (0.1-1.2) X10*3/uL Eos # (Auto) 0.1 (0.0-0.4) X10*3/uL Baso # (Auto) 0.0 (0.0-0.2) X10*3/uL Abs Immat Gran (auto) 0.02 (0.00-0.03) X10*3/uL Absolute Neuts (auto) 4.1 (2.0-8.3) x10*3/uL Absolute Nucleated RBC 0.000 (0.0-0.012) X10*3/uL Nucleated RBC % (auto) 0.0 (0.0-0.2) /100WBC PT 16.3 H (10.9-12.4) SEC INR 1.4 H (0.9-1.1) Sodium 140 (135-145) mmol/L Potassium 3.7 (3.3-5.1) mmol/L Chloride 104 (96-108) mmol/L Carbon Dioxide 26 (22-29) mmol/L Anion Gap 14 (12-20) BUN 11 (9-16) mg/dL Creatinine 0.80 (0.5-1.4) mg/dL Estim Creat Clear Calc 44.5 Estimated GFR > 60 Random Glucose 123 H (60-115) mg/dL Calcium 9.2 D (8.4-10.2) mg/dL Magnesium 2.2 (1.6-2.6) mg/dL Total Bilirubin 0.5 (0.0-1.0) mg/dL AST 25 (5-31) U/L ALT 20 (0-31) U/L Alkaline Phosphatase 81 (39-117) U/L Troponin I High Sens 112.6 H* (<3.5-17.0) ng/L B-Natriuretic Peptide 442 H (<100) pg/mL Total Protein 7.2 (6.5-8.0) g/dL Albumin 4.5 (3.5-5.0) g/dL Critical Care Time Critical Care Time Critical Care Time: Yes Total Critical Care Time: 60 Attestation: Rapid atrial flutter IV Cardizem and titration Discharge Plan Discharge Clinical Impression: Atrial flutter with rapid ventricular response Patient Disposition: Admitted As Inpatient Print Language: Singaporean
[2024-07-29] MEDS: dilTIAZem HCL 50 MG/10 ML VIAL 15 MG IVPUSH (13:35)
[2024-07-29 13:40] LABS: MANUAL DIFF FLAG NO
[2024-07-29] MEDS: dilTIAZem HCL 125 MG in 0.9 % Sodium Chloride 100 ML 10 MG IVCONT (13:43)
[2024-07-29 13:46] LABS: Basophils Percent Auto 0.5 % (0-2); Eosinophils Absolute Auto 0.1 X10*3/uL (0.0-0.4); Eosinophils Percent Auto 0.9 % (0-4); Hematocrit 43.8 % (37.0-47.0); Hemoglobin 14.1 g/dl (12.0-16.0); INTERNATIONAL NORM RATIO 1.4 (0.9-1.1); Imm Gran Abs Auto 0.02 X10*3/uL (0.00-0.03); Imm Gran Pct Auto 0.3 % (0.0-0.4); Lymphocytes Absolute Auto 1.2 X10*3/uL (1.2-4.9); Lymphocytes Percent Auto 20.8 % (20-40); Mean Corpuscular HGB Conc 32.2 g/dl (31.0-35.0); Mean Corpuscular Hemoglobin 29.3 pg (27.0-33.0); Mean Corpuscular Volume 91.1 fL (80.0-98.0); Mean Platelet Volume 9.5 fL (9.4-12.3); Monocytes Absolute Auto 0.4 X10*3/uL (0.1-1.2); Monocytes Percent Auto 6.4 % (2-11); Neutrophils Absolute Auto 4.1 x10*3/uL (2.0-8.3); Neutrophils Percent Auto 71.1 % (45-73); Platelet Count 160 X10*3/uL (160-400); Prothrombin Time 16.3 SEC (10.9-12.4); Red Blood Count 4.81 X10*6/uL (4.20-5.50); Red Cell Distribution Width 13.6 % (11.0-16.0); White Blood Count 5.8 X10*3/uL (4.8-10.8)
[2024-07-29 14:01] LABS: B Type Natriuretic Peptide 442 pg/mL (<100)
[2024-07-29 14:02] LABS: Alanine Aminotransferase 20 U/L (0-31); Albumin Level 4.5 g/dL (3.5-5.0); Alkaline Phosphatase 81 U/L (39-117); Anion Gap 14 (12-20); Aspartate Amino Transferase 25 U/L (5-31); Bilirubin Total 0.5 mg/dL (0.0-1.0); Blood Urea Nitrogen 11 mg/dL (9-16); Calcium 9.2 mg/dL (8.4-10.2); Carbon Dioxide 26 mmol/L (22-29); Chloride 104 mmol/L (96-108); Creatinine Clr Calc Pharmacy 44.5; Estimated Glomerular Filt Rate > 60; Glucose Random 123 mg/dL (60-115); Magnesium 2.2 mg/dL (1.6-2.6); Potassium 3.7 mmol/L (3.3-5.1); Sodium 140 mmol/L (135-145); Total Protein 7.2 g/dL (6.5-8.0)
[2024-07-29 14:12] LABS: Troponin-I High Sensitivity 112.6 ng/L (<3.5-17.0)
--- NOTE | 2024-07-29 14:47 | PC.NURSE ---
Pt tolerating Diltiazem; HR from 150 rapid aflutter to 74 3:1 flutter; bp 100/75 at this time; pt reports feeling improved; will cont to monitor/tx per orders
--- NOTE | 2024-07-29 15:32 | P.HPHOSP_ITS ---
History of Present Illness Date of Service: 07/29/24 Attending physician on admission: [facility] Chief Complaint: Palpitatons Pt is a 73-year-old female with a PMH significant for?moderate diastolic dysfunction, remote AST closure several decades ago, and HTN who presents to the ED for evaluation of palpitations x2 weeks. Pt follows with Dr. Arcos for atrial premature depolarization and was started on metoprolol 1 month ago on 07/01/2024. Reports stopped taking the medication on her own approximately 1-2 weeks ago for vague reasons. Reports has been experiencing palpitations for the past 2 weeks. No lightheadedness or dizziness. Denies shortness or breath or difficulty breathing. Some LLE. Presented to her PCP yesterday and EKG showed she was in Atrial flutter in the 150s. PCP spoke to Dr. Arcos and pt was started on Eliquis 5 mg b.i.d. and encouraged to come to the ED yesterday; however, pt ?had stufff to do? and waited until this afternoon to present. Denies chest pain/pressure. No cough. Reports took 2 doses of Eliquis last night and this morning. Currently smokes around half a pack of cigarettes daily. In the ED pt was tachycardic up to 147 and hypertensive up to 146/96. Labs were significant for troponin 112.6 and BNP 442. No leukocytosis. Stable H&H. No significant electrolyte abnormalities. Renal function baseline. Hepatic function WNL. CXR showed COPD without superimposed disease. EKG demonstrated atrial flutter 2-1 AV conduction. Pt was treated in the ED with diltiazem 15 mg IV and started on diltiazem drip. Pt is admitted to the hospital for symptomatic atrial flutter with RVR requiring Cardizem drip. Review of Systems 2 Review of Systems: Negative except for that which is stated in the HPI. [facility] Medical History Essential hypertension Ectopic atrial rhythm Family History Father No problems noted. Mother No problems noted. Surgical History History of cholecystectomy History of umbilical hernia repair History of craniotomy History of cardiac catheterization (~05/30/18) History of atrial septal defect repair Social History Household Members: Family Housing: House Do you presently have visiting nurse or other home services: No Patient Tobacco Use Status: Current everyday Tobacco user Tobacco use type: Cigarette Cigarettes Per Day: 5 Smoked in Last 30 Days: Yes e-Cigarette/Vaping Use: Currently Using Patient Interested in Nicotine Replacement: No Use of substances other than those prescribed or required for medical reasons: No Have you been hit, kicked, punched, or otherwise hurt by someone within the past year? 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 Meds Allergies Allergy/AdvReac Type Severity Reaction Status Date / Time Iodinated Contrast Media Allergy Severe ANAPHYLAXIS Verified 07/29/24 13:09 [IV Dye, Iodine Containing] Active Medications: Current Medications Diltiazem HCl 125 mg/ Sodium (Chloride) 125 mls @ 0 mls/hr IVCONT .Q0M [facility]; Protocol Last Admin: 07/29/24 13:43 Dose: 10 mg/hr, 10 mls/hr Home Medications ?Medication ?Instructions ?Recorded ?Confirmed ?Last Taken ?Type apixaban 5 mg tablet (Eliquis) 5 mg PO BID 07/29/24 07/29/24 07/29/24 History oxycodone 5 mg tablet 5 mg PO Q6H PRN pain 07/29/24 07/29/24 Unknown History Physical Exam 2 Vital Signs and Narrative: Vital Signs: Last Vital Signs Temp 98.4 F 07/29/24 13:02 Pulse 74 07/29/24 14:46 Resp 18 07/29/24 14:46 BP 100/75 07/29/24 14:46 Pulse Ox 97 07/29/24 13:51 O2 Del Method Room Air 07/29/24 14:46 O2 Flow Rate 97 07/29/24 14:46 BMI result Body Mass Index 18.2 General: AOx3, no acute distress Resp: CTA bilaterally CVS: Irregularly irregular rhythm GI: +BS, NT, no distention Skin: Warm, dry Neuro: Cranial nerves II-XII grossly intact bilaterally. Motor grossly intact bilaterally Extremities: Non-pitting lower leg edema Psych: Appropriate affect Results Labs 07/29/24 13:35 07/29/24 13:35 Labs: Laboratory Results - last 24 hr 07/29/24 13:35 MCV 91.1 MCH 29.3 MCHC 32.2 RDW 13.6 Plt Count 160 MPV 9.5 Immature Gran % (Auto) 0.3 Neut % (Auto) 71.1 Lymph % (Auto) 20.8 Randolph % (Auto) 6.4 Eos % (Auto) 0.9 Baso % (Auto) 0.5 Lymph # (Auto) 1.2 Randolph # (Auto) 0.4 Eos # (Auto) 0.1 Baso # (Auto) 0.0 Abs Immat Gran (auto) 0.02 Absolute Neuts (auto) 4.1 Absolute Nucleated RBC 0.000 Nucleated RBC % (auto) 0.0 PT 16.3 H INR 1.4 H Anion Gap 14 Estim Creat Clear Calc 44.5 Estimated GFR > 60 Random Glucose 123 H Calcium 9.2 D Magnesium 2.2 Total Bilirubin 0.5 AST 25 ALT 20 Alkaline Phosphatase 81 B-Natriuretic Peptide 442 H Total Protein 7.2 Albumin 4.5 Imaging Radiologist's Impressions: Impressions Chest X-Ray 07/29/24 13:16 IMPRESSION: COPD. No active superimposed disease. Electronically signed by: Vinay Drake MD 07/29/2024 01:32 PM EDT RP Assessment and Plan (1) Atrial flutter with rapid ventricular response: Status: Acute Plan Pt is a 73-year-old female with a PMH significant for?moderate diastolic dysfunction, remote AST closure several decades ago, and HTN who presents to the ED for evaluation of palpitations x2 weeks. Pt is admitted to the hospital for symptomatic atrial flutter with RVR requiring Cardizem drip. Atrial flutter with RVR Pt experiencing significant and persistent palpitations x2 weeks Recently started on metoprolol 4 weeks ago by Cardiology, stopped taking on her own around 2 weeks ago EKG showing atrial flutter in the 140s Given diltiazem 50 mg IV x1, started on drip Continue diltiazem drip Echo on 06/22 showed normal LV EF of 64% with moderate diastolic dysfunction and moderately dilated left atrium Continue metoprolol 25 mg b.i.d., Eliquis Cardiology consult Monitor on telemetry Elevated troponin Initial troponin 112.6 Pt asymptomatic, EKG without ischemic changes Most likely type 2 in the setting of increased demand Repeat troponin Monitor on telemetry Elevated BNP BNP 442, no previous for comparison Pt with mild nonpitting lower leg edema, CXR without pleural effusion or pulmonary edema Likely in the setting of a flutter with RVR Treat as above Monitor volume status HTN Continue amlodipine Mood disorder Continue clonazepam Full Code, verified with pt Attending:?Dr. Cunningham DVT Prophylaxis: On Eliquis Pt will require a hospitalization of at least two nights for treatment of?atrial flutter with RVR requiring Cardizem drip, close cardiac monitoring, and specialist consultation with Cardiology. Quality Stroke Does the patient have a stroke diagnosis?: No VTE Prior VTE?: No VTE Risk Level:: Medical - moderate - high VTE Device Contraindication: Treatment Not Indicated VTE Drug Contraindication: N/A - Med Ordered
--- NOTE | 2024-07-29 16:12 | PHA.MEDREC ---
Addendum entered by Tristen Madera RPh 07/29/24 16:58: Med rec was reviewed by [facility]. Original Note: Pharmacy Consult ? Medication Reconciliation Pharmacy has completed the medication reconciliation. Spoke to patient and she was able to confirm all her medications. Patient states she had all her morning medications today.
--- NOTE | 2024-07-29 16:39 | MHC.EDTECH ---
Walked patient to bathroom
[2024-07-29 17:15] LABS: Troponin-I High Sensitivity 105.5 ng/L (<3.5-17.0)
[2024-07-29] MEDS: Metoprolol Tartrate 25 MG TABLET PO (18:34)
[2024-07-29] MEDS: Apixaban 5 MG TABLET PO (20:16)
[2024-07-29] MEDS: clonazePAM 1 MG TABLET PO (20:16)
[2024-07-30 02:55] VITALS: BP 119/84; PULSE 94; RESP 20; TEMP 36.2; O2SAT 96
[2024-07-30] MEDS: Acetaminophen 325 MG TABLET 650 MG PO (02:57)
[2024-07-30] MEDS: 0.9 % Sodium Chloride Flush 3 ML SYRINGE IVFLUSH ×2 (02:58→09:15)
[2024-07-30 07:21] VITALS: BP 121/80; PULSE 97; RESP 17; TEMP 36.4; O2SAT 96
--- NOTE | 2024-07-30 08:50 | MHC.CM.PN ---
CM met with Patient at bedside and addressed IMM with her, providing Patient with the original and a copy has been placed on the chart. Patient lives with and cares for her Mother who is active with [facility]. Patient is functionally independent and home/self care is her goal;CM has initiated and will follow for dc planning. PCP is Dr. Thor Rojo and Patient reports that he Sister/Josefa is her HCP(there is a HCP on file but it cannot be viewed in [facility]). Sister will transport to home at time of dc.
[2024-07-30] MEDS: Apixaban 5 MG TABLET PO (09:14)
[2024-07-30] MEDS: Calcium Oyster Shell Elemental 500 MG TABLET PO (09:14)
[2024-07-30] MEDS: Metoprolol Tartrate 25 MG TABLET PO (09:14)
--- NOTE | 2024-07-30 10:39 | P.CONCA_ITS ---
History of Present Illness History of Present Illness Date of Service: 07/30/24 Requesting physician: Mary Dominguez Consult reason: other (Atrial flutter) Chief complaint: Atrial flutter Narrative: I was consulted to see Lianna in cardiology consultation today who regularly follows with Dr. Arcos for cardiac arrhythmias and with prior atrial septal defect closure as well as hypertension. Patient also has prior history of PVCs and ectopic atrial rhythm. Was started on metoprolol therapy. She has recently been having lot of stress and she started noticing heart rate going rapid and felt that this could have been a side effect with metoprolol and therefore she stopped her metoprolol therapy. She continued to have fast heart rate and symptoms of palpitation and wants feeling fatigued. She however thought that pulse being regular she was not thinking of atrial fibrillation and event to a primary care physician yesterday will perform EKG which showed atrial flutter with 2 is to 1 conduction with rapid heart rate. Shows subsequently referred to our office and from there she was referred to the emergency room and she was admitted. She was initially started on IV Cardizem drip and responded well with rate control with improved symptoms overnight Cardizem drip was withheld. This morning heart rate are 90s at rest and going up to 120 quickly with minimal exertion. Patient says she feels better. She has not had any heart failure symptoms. She was also started on oral anticoagulation therapy since yesterday. These symptoms have been going on for at least few days to a week. She has not had any neurologic symptoms. She denies any prior history of atrial fibrillation/flutter. Review of Systems 2 Constitutional: Constitutional: Reports fatigue Eyes: Eyes: Reports no additional eye complaints Cardiovascular: Cardiovascular: Denies chest pain, Reports rapid heart rate, Denies lightheadedness, Denies Loss of Consciousness, Reports palpitations, Denies dyspnea on exertion and Denies orthopnea Respiratory: Respiratory: Reports no additional respiratory complaints and Denies dyspnea on exertion Gastrointestinal: Gastrointestinal: Reports no additional gastrointestinal complaints Musculoskeletal: Musculoskeletal: Reports no additional musculoskeletal complaints Neurologic: Reports system reviewed and no additional complaints, except as documented Psychiatric: Psychiatric: Reports no additional psychiatric complaints Endocrine: Endocrine: Reports fatigue and Reports palpitations PMFSH Past Medical History Medical History Essential hypertension Ectopic atrial rhythm Family History Family History Father No problems noted. Mother No problems noted. Surgical History Surgical History History of cholecystectomy History of umbilical hernia repair History of craniotomy History of cardiac catheterization (~05/30/18) History of atrial septal defect repair Social History Social History Household Members: Family Housing: House Do you presently have visiting nurse or other home services: No Patient Tobacco Use Status: Current everyday Tobacco user Tobacco use type: Cigarette Cigarettes Per Day: 5 Smoked in Last 30 Days: Yes e-Cigarette/Vaping Use: Currently Using Patient Interested in Nicotine Replacement: No Use of substances other than those prescribed or required for medical reasons: No Currently Displaying Signs/Symptoms of Drug Intoxication Withdrawal: No Have you been hit, kicked, punched, or otherwise hurt by someone within the past year? 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 Meds Allergies Allergy/AdvReac Type Severity Reaction Status Date / Time Iodinated Contrast Media Allergy Severe ANAPHYLAXIS Verified 07/29/24 13:09 [IV Dye, Iodine Containing] Active Medications: Current Medications Acetaminophen (Acetaminophen 325 Mg Tablet) 650 mg PO Q6H PRN PRN Reason: Pain, Mild 1-3,fever,headache Last Admin: 07/30/24 02:57 Dose: 650 mg Amlodipine Besylate (Amlodipine Besylate 5 Mg Tablet) 5 mg PO DAILY [facility]; Protocol Apixaban (Apixaban 5 Mg Tablet) 5 mg PO BID [facility] Last Admin: 07/30/24 09:14 Dose: 5 mg Calcium Carbonate (Calcium Oyster Shell Elemental 500 Mg Tablet) 500 mg PO DAILY [facility] Last Admin: 07/30/24 09:14 Dose: 500 mg Clonazepam (Clonazepam 1 Mg Tablet) 1 mg PO BID [facility] Last Admin: 07/30/24 09:22 Dose: Not Given Diltiazem HCl 125 mg/ Sodium (Chloride) 125 mls @ 0 mls/hr IVCONT .Q0M [facility]; Protocol Last Titration: 07/29/24 19:26 Dose: 0 mg/hr, 0 mls/hr Magnesium Hydroxide (Milk Of Magnesia 30 Ml Oral.Susp) 30 ml PO DAILY PRN PRN Reason: Constipation Melatonin (Melatonin 3 Mg Tablet) 6 mg PO BEDTIME PRN PRN Reason: Insomnia Metoprolol Tartrate (Metoprolol Tartrate 25 Mg Tablet) 25 mg PO BID [facility]; Protocol Last Admin: 07/30/24 09:14 Dose: 25 mg Oxycodone HCl (Oxycodone Hcl Immed Release 5 Mg Tablet) 5 mg PO Q6H PRN PRN Reason: Pain, Severe (Pain Scale 7-10) Sodium Chloride (0.9 % Sodium Chloride Flush 3 Ml Syringe) 3 ml IVFLUSH QSHIFT [facility] Last Admin: 07/30/24 09:15 Dose: 3 ml Home Medications ?Medication ?Instructions ?Recorded ?Confirmed ?Last Taken ?Type apixaban 5 mg tablet (Eliquis) 5 mg PO BID 07/29/24 07/29/24 07/29/24 History oxycodone 5 mg tablet 5 mg PO Q6H PRN pain 07/29/24 07/29/24 Unknown History Physical Exam 2 Vital Signs: Vital Signs: Last Vital Signs Temp 97.6 F 07/30/24 07:21 Pulse 97 07/30/24 07:21 Resp 17 07/30/24 07:21 BP 121/80 07/30/24 07:21 Pulse Ox 96 07/30/24 07:21 O2 Del Method Room Air 07/30/24 07:21 O2 Flow Rate 97 07/29/24 14:46 BMI result Body Mass Index 18.3 Const: General: cooperative, comfortable, no acute distress, alert and awake Nutritional Appearance: thin Orientation/consciousness: patient oriented x3 Limitations: no limitations HEENT: Head: Yes normocephalic and Yes atraumatic Neck: Neck: Yes trachea midline, Yes supple and Yes no JVD Resp: Effort & Inspection: normal respiratory effort Auscultation: clear to auscultation bilaterally Cardio: Jugular venous distension: no JVD Rate: tachycardic Rhythm: a bnormal rhythm irregularly irregular Heart sounds: S1 normal heart sound present, S2 normal heart sound present, no click, no gallops and no murmurs GI: Auscultation: normal bowel sounds Skin: General skin exam: no rashes or lesions noted Neuro: General: patient oriented x3 and no focal motor deficits Extrem: General: Yes no clubbing, cyanosis or edema Objective Labs and Meds 07/29/24 13:35 07/29/24 13:35 Lab results: Laboratory Results - last 24 hr 07/29/24 07/29/24 13:35 16:38 WBC 5.8 RBC 4.81 Hgb 14.1 Hct 43.8 MCV 91.1 MCH 29.3 MCHC 32.2 RDW 13.6 Plt Count 160 MPV 9.5 Immature Gran % (Auto) 0.3 Neut % (Auto) 71.1 Lymph % (Auto) 20.8 Carter % (Auto) 6.4 Eos % (Auto) 0.9 Baso % (Auto) 0.5 Lymph # (Auto) 1.2 Carter # (Auto) 0.4 Eos # (Auto) 0.1 Baso # (Auto) 0.0 Abs Immat Gran (auto) 0.02 Absolute Neuts (auto) 4.1 Absolute Nucleated RBC 0.000 Nucleated RBC % (auto) 0.0 PT 16.3 H INR 1.4 H Sodium 140 Potassium 3.7 Chloride 104 Carbon Dioxide 26 Anion Gap 14 BUN 11 Creatinine 0.80 Estim Creat Clear Calc 44.5 Estimated GFR > 60 Random Glucose 123 H Calcium 9.2 D Magnesium 2.2 Total Bilirubin 0.5 AST 25 ALT 20 Alkaline Phosphatase 81 Troponin I High Sens 112.6 H* 105.5 H* B-Natriuretic Peptide 442 H Total Protein 7.2 Albumin 4.5 EKG shows typical atrial flutter with 2 is to 1 conduction. Imaging Radiologist's impression: Impressions Chest X-Ray 07/29/24 13:16 IMPRESSION: COPD. No active superimposed disease. Electronically signed by: Vinay Drake MD 07/29/2024 01:32 PM EDT RP Assessment and Plan (1) Atrial flutter with rapid ventricular response: Status: Acute New onset atrial flutter in this elderly woman with prior history of cardiac pathology with atrial septal defect repair with prior history of cardiac arrhythmias, symptomatic. However rate was easily controlled with Cardizem therapy. Rate is borderline elevated at this point time but symptoms have improved. I have suggested to resume metoprolol 25 mg b.i.d. which has been started but also add Cardizem CD 120 mg to her regimen. If rate remains adequately controlled I think she can be discharged home later today. I had a very detailed discussion about management plan. Options would include referring to EPS for ablation as this appears to be typical flutter with a right atrial reentry circuit which can be approach with the catheter. Other option would include synchronized cardioversion which can be pursued acutely with SHELLI guided although this is not necessary as patient does not seem to have uncontrolled heart rate or any other cardiac compromise or after 4 weeks of anticoagulation. She is willing to pursue oral anticoagulation therapy for 4 weeks. Will set up for follow-up in 7-10 days in the clinic. Thank you for allowing me to partake in her care Procedures Date of Service Date of Service: 07/30/24
[2024-07-30] MEDS: dilTIAZem HCL CD 120 MG CAP.ER.DEG PO (11:07)
[2024-07-30 11:29] VITALS: BP 120/79; PULSE 75; RESP 15; TEMP 36.2; O2SAT 98
[2024-07-30 12:34] VITALS: BMI 18.3
--- NOTE | 2024-07-30 12:38 | MHC.CLN ---
PT IS BORDERLINE UNDER WT FOR HT WITH BMI 18.3 PT REPORTS WT STABLE AND NO CHANGES IN APPETITE CURRENT WT 44 (07/29/24) PREVIOUS WT HX 43.8KG (04/01/23) PT STATED SHE HAS ALWAYS BEEN THIS WT AND HAS BEEN MAINTAINING UBW RANGE CONFIRMED HT 61 NO S/S MALNUTRITION T THIS TIME CARDIAC DIET IN PLACE LUNCH MEAL IN FRONT OF PT DURING INTERVIEW AND PT READY TO EAT PT'S GOAL IS TO CONTINUE TO MAINTAIN CURRENT WT-DOES NOT WANT OFFERED SUPPLEMENTS CONTINUE CURRENT CARE PLAN SEE FULL ASSESSMENT
--- NOTE | 2024-07-30 14:59 | P.DS_ITS ---
DS: Providers Provider Date of Service: 07/30/24 Date of admission: 07/29/24 14:50 Date of discharge: 07/30/24 Primary care physician: Thor Rojo MD Consults: 07/29/24 16:22 Consult to Cardiology Routine Consulting Provider: [facility] Reason for consultation: AFlutter w/RVR, follows with Dr. Arcos Attending physician on discharge: Nadege Zamudio Discharging clinician: Mary Dominguez DS: Diagnosis Discharge Diagnosis (1) Atrial flutter with rapid ventricular response: Status: Acute DS: Summary Hospital Course Hospital Course: From H&P on the day of admission Pt is a 73-year-old female with a PMH significant for?moderate diastolic dysfunction, remote AST closure several decades ago, and HTN who presents to the ED for evaluation of palpitations x2 weeks. Pt follows with Dr. Arcos for atrial premature depolarization and was started on metoprolol 1 month ago on 07/01/2024. Reports stopped taking the medication on her own approximately 1-2 weeks ago for vague reasons. Reports has been experiencing palpitations for the past 2 weeks. No lightheadedness or dizziness. Denies shortness or breath or difficulty breathing. Some LLE. Presented to her PCP yesterday and EKG showed she was in Atrial flutter in the 150s. PCP spoke to Dr. Arcos and pt was started on Eliquis 5 mg b.i.d. and encouraged to come to the ED yesterday; however, pt ?had stufff to do? and waited until this afternoon to present. Denies chest pain/pressure. No cough. Reports took 2 doses of Eliquis last night and this morning. Currently smokes around half a pack of cigarettes daily. In the ED pt was tachycardic up to 147 and hypertensive up to 146/96. Labs were significant for troponin 112.6 and BNP 442. No leukocytosis. Stable H&H. No significant electrolyte abnormalities. Renal function baseline. Hepatic function WNL. CXR showed COPD without superimposed disease. EKG demonstrated atrial flutter 2-1 AV conduction. Pt was treated in the ED with diltiazem 15 mg IV and started on diltiazem drip. Pt is admitted to the hospital for symptomatic atrial flutter with RVR requiring Cardizem drip. Pt is a 73-year-old female with a PMH significant for?moderate diastolic dysfunction, remote AST closure several decades ago, and HTN who presents to the ED for evaluation of palpitations x2 weeks. Pt is admitted to the hospital for symptomatic atrial flutter with RVR requiring Cardizem drip. Atrial flutter with RVR Pt experiencing significant and persistent palpitations x2 weeks. Recently started on metoprolol 4 weeks ago by Cardiology, stopped taking on her own around 2 weeks ago. EKG showing atrial flutter in the 140s. In the emergency department he received a dose of IV Cardizem followed by Cardizem drip. She had improvement in her heart rate as well as her symptoms. She was resumed metoprolol and the dose will be increased to Toprol-XL 50 mg daily. She was seen by Cardiology who recommend starting Cardizem as well. Heart rate has remained stable and she is eager to return home. Elevated troponin Initial troponin 112.6, remained flat, repeat 105.5. Pt asymptomatic, EKG without ischemic changes. Most likely type 2 in the setting of increased demand Elevated BNP BNP 442, no previous for comparison. No hypoxia or respiratory symptoms. Chest x-ray negative Outpatient follow-up Time Attestation Discharge Coordination Time (in mins): 35 Quality: Safe Use of Opioids Does Pt have an Active Cancer Diagnosis on the Problem List?: No Quality: Stroke Does the patient have a stroke diagnosis?: No Physical Exam Vital Signs: Vital Signs: Last Vital Signs Temp 97.2 F 07/30/24 11:29 Pulse 75 07/30/24 11:29 Resp 15 07/30/24 11:29 BP 120/79 07/30/24 11:29 Pulse Ox 98 07/30/24 11:29 O2 Del Method Room Air 07/30/24 11:29 O2 Flow Rate 97 07/29/24 14:46 BMI result Body Mass Index 18.3 Const: Other: Awake, alert, no acute distress alert and oriented x3 Cardiovascular regular rate Pulmonary. No respiratory distress, lungs clear Neuro. Able to move all 4 extremities spontaneously cranial nerves 2-12 are grossly intact DS: Data Data Completed and Pending Labs on day of discharge: Laboratory Results - last 24 hr 07/29/24 16:38 Troponin I High Sens 105.5 H* Discharge Plan Discharge Anticipated Discharge Date/Time: 07/30/24 15:15 Patient Disposition: Home, Self-Care Discharge Diagnosis: Atrial flutter with rapid ventricular response Referrals: Thor Rojo MD [Primary Care Provider] - 1 Week Discharge Medications: New diltiazem HCl [Cardizem CD] 120 mg Capsule,Extended Release 24hr 120 mg PO DAILY 90 Days Qty: 90 0RF Protocol: Hold for SBP/HR < HOLD for SBP < : 90 HOLD for HR < : 60 metoprolol succinate [Toprol XL] 50 mg tablet extended release 24 hr 50 mg PO DAILY 90 Days Qty: 90 0RF Continued clonazepam [Klonopin] 1 mg tablet 1 mg PO BID Qty: 30 0RF Caltrate 600 plus D 600 mg (1,500 mg)-800 unit tablet,chewable 1 tab PO DAILY Qty: 30 0RF cholecalciferol (vitamin D3) 75 mcg (3,000 unit) tablet 75 mcg PO DAILY Qty: 30 0RF Eliquis 5 mg tablet 5 mg PO BID oxycodone 5 mg tablet 5 mg PO Q6H PRN (Reason: pain) Discontinued amlodipine 5 mg tablet 5 mg PO DAILY Qty: 90 3RF metoprolol succinate [Toprol XL] 25 mg tablet extended release 24 hr 25 mg PO DAILY Qty: 90 1RF Discharge Orders: Discharge Order (Routine); Ordered 07/30/24 Ordered By: Mary Dominguez Activity on Discharge: As tolerated Stand Alone Forms: Patient Portal Discharge page Print Language: Peruvian Care Plan Goals: See below Health Concerns: Atrial flutter with rapid ventricular response Plan of Treatment: Started on Cardizem 120 mg daily Dose of metoprolol increased to 50 mg XL once daily Outpatient follow-up with Cardiology Continue current dose of Eliquis Stop taking amlodipine Assessment: See discharge summary
--- NOTE | 2024-07-30 15:46 | MHC.CM.PN ---
Patient has been medically cleared for dc to home today, self care.
== END 2024-07-30 16:22 | disposition home or self-care (01) | DRG 310 ==
LOC: HO.ED 14:49 → HO.EDOVER 14:55 → HO.IMC 15:32
PROVIDERS: Registered Nurse Emergency; Admitting Provider Student in an Organized Health Care Education/Training Program; Emergency Provider Emergency Medicine; PCP Internal Medicine; Visit Provider Physician Assistant Medical
DX: I48.92 Unspecified atrial flutter (principal); I10 Essential (primary) hypertension; F39 Unspecified mood [affective] disorder; Z87.74 Personal history of (corrected) congenital malformations of heart and circulatory system; F17.210 Nicotine dependence, cigarettes, uncomplicated; Z71.6 Tobacco abuse counseling; Z79.01 Long term (current) use of anticoagulants; Z79.899 Other long term (current) drug therapy
CPT/HCPCS: 36415; 71045; 80053; 83735; 83880; 84484; 85025; 85610; 93005; 99285

== ENCOUNTER → 2024-07-29 12:56 | Outpatient (BNV) | payer MEDICARE, SELFPAY | PROVIDERS: Admitting Provider Student in an Organized Health Care Education/Training Program; Emergency Provider Emergency Medicine; PCP Internal Medicine; Visit Provider Internal Medicine Cardiovascular Disease | DX: I48.92 Unspecified atrial flutter (principal); I44.1 Atrioventricular block, second degree | CPT/HCPCS: 93010 ==

== ENCOUNTER → 2024-07-29 13:16 | Outpatient (BNV) | payer MEDICARE, SELFPAY | PROVIDERS: Emergency Provider Emergency Medicine; PCP Internal Medicine; Visit Provider Radiology Diagnostic Radiology | DX: R07.9 Chest pain, unspecified (principal) | CPT/HCPCS: 71045 ==

== ENCOUNTER → 2024-07-29 14:50 | Outpatient (BNV) | payer MEDICARE, SELFPAY | PROVIDERS: Admitting Provider Student in an Organized Health Care Education/Training Program; Emergency Provider Emergency Medicine; PCP Internal Medicine; Visit Provider Internal Medicine Cardiovascular Disease | DX: I48.92 Unspecified atrial flutter (principal) | CPT/HCPCS: 99222 ==

== ENCOUNTER → 2024-07-29 14:50 | Outpatient (BNV) | payer MEDICARE, SELFPAY | PROVIDERS: Admitting Provider Student in an Organized Health Care Education/Training Program; Emergency Provider Emergency Medicine; PCP Internal Medicine; Visit Provider Physician Assistant Medical | DX: I48.92 Unspecified atrial flutter (principal) | CPT/HCPCS: 99223; 99239 ==

== ENCOUNTER 2024-08-11 10:26 | Outpatient (AMB) | payer MEDICARE, SELFPAY ==
[2024-08-11 10:34] VITALS: BP 126/80; PULSE 94; BMI 17.9
--- NOTE | 2024-08-11 10:34 | MHC.OFFVIS ---
Vital Signs 08/11/24 10:34 Height 5 ft 1 in Weight 94 lb 12.78 oz BMI 17.9 BP 126/80 Blood Pressure Location Lt brachial Position Sitting Pulse 94 Intake Visit Reasons: [facility] [place] Int[place] Note: [facility] [place] c/o some let swelling Measurement And Verification Engineer Required: No Allergies Iodinated Contrast Media [IV Dye, Iodine Containing] Allergy (Severe, Verified 07/29/24 13:09) ANAPHYLAXIS Medication List - Last Reconciled 08/11/24 by Lenin Arcos MD apixaban (Eliquis) 5 mg PO BID calcium carbonate-vitamin D3 600 mg-20 mcg (800 unit) (Caltrate plus D) 1 tab PO DAILY cholecalciferol (vitamin D3) 75 mcg PO DAILY clonazepam (Klonopin) 1 mg PO BID metoprolol succinate ER 100 mg PO DAILY oxycodone 5 mg PO Q6H PRN HPI Comments Details: Lianna returns for follow-up. She has a history of remote ASD closure from several decades ago. Has hypertension for which she is on amlodipine. She also has undergone a cardiac catheterization few years ago that was unremarkable. She has been getting intermittent palpitations. During recent clinic visit, she was not atrial tachycardia but controlled ventricular rate. Subsequently, she went to PCP's office with palpitations and was found to be in atrial flutter with rapid rate. Following this, she was admitted to the hospital. Managed with rate control by beta-blockers and also put on anticoagulation. She states that she is doing fine for the most part. Palpitations are quite well controlled. She does not have any other obvious symptoms. [facility] Medical History Essential hypertension Ectopic atrial rhythm Surgical History History of cholecystectomy History of umbilical hernia repair History of craniotomy History of cardiac catheterization (~05/30/18) History of atrial septal defect repair Family History Father No problems noted. Mother No problems noted. 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 Review of Systems Const Denies chills, Denies fatigue, Denies fever(s), Denies frequent falls, Denies weakness, Denies weight gain and Denies weight loss ENT Denies dizziness Card Denies chest pain, Denies leg edema, Denies lightheadedness, Denies palpitations, Denies dyspnea, Denies dyspnea on exertion, Denies orthopnea and Denies other (loss of consciousness) Resp Denies cough, Denies dyspnea and Denies dyspnea on exertion GI Denies hematochezia and Denies change in stool character Musc Denies abnormal gait, Denies muscle weakness, Denies numbness, Denies radiating pain into limb and Denies tingling Neuro Denies abnormal gait, Denies dizziness, Denies frequent falls, Denies numbness, Denies tingling and Denies weakness Endo Denies fatigue and Denies palpitations Physical Exam Vital Signs: Last Vital Signs Pulse 94 08/11/24 10:34 BP 126/80 08/11/24 10:34 BMI result Body Mass Index 17.9 Const General: comfortable and no acute distress Orientation/consciousness: patient oriented x3 HEENT Other: Unremarkable Head: Yes normal to inspection Neck Neck: Yes normal visual inspection Chest Chest palpation & inspection: normal inspection of the chest Resp Auscultation: clear to auscultation bilaterally Cardio Palpation: normal PMI Heart sounds: S1 normal heart sound present, S2 normal heart sound present, no gallops, no murmurs and no rubs GI Palpation (GI): Soft to palpation Back/Spine/Pelvis Other: unremarkable Skin General skin exam: no rashes or lesions noted Neuro General: patient oriented x3 Extrem General: Yes normal to inspection Psych Mental Status: mental status grossly normal Office Procedures EKG Details: EKG with atrial flutter at a rate of 85/Min. [id number], Complete Assessment & Plan Assessment & Plan (1) Typical atrial flutter: Code(s): I48.3 - Typical atrial flutter Category: Medical Plan: By recent EKGs as well as today's EKG, she is in atrial flutter. Seems to be typical cava tricuspid isthmus flutter. Recommend EP evaluation and flutter ablation. She is agreeable. (2) Ectopic atrial rhythm: Code(s): I49.1 - Atrial premature depolarization Category: Medical Plan: In the recent EKG, atrial tachycardia with 2-1 block. In the Holter monitor, frequent supraventricular ectopy with a burden of about 5%. Short runs of SVT. Continue beta-blockers. (3) PVC (premature ventricular contraction): Code(s): I49.3 - Ventricular premature depolarization Category: Medical Plan: Overall burden of 1.6% with short runs. Beta-blockers as above. (4) Diastolic dysfunction: Code(s): I51.89 - Other ill-defined heart diseases Category: Medical Plan: Moderate diastolic dysfunction on echocardiogram. Clinically, no overt heart failure symptoms or signs. (5) Mitral annular calcification: Code(s): I05.9 - Rheumatic mitral valve disease, unspecified Category: Medical Plan: Moderate mitral annular calcification with [id number] mitral regurgitation. We will follow up on echocardiogram. (6) Status post atrial septal defect closure: Code(s): Z87.74 - Personal history of (corrected) congenital malformations of heart and circulatory system Category: Surgical Plan: Remote procedure many decades ago. 1970s. No recent issues. (7) Essential hypertension: Code(s): I10 - Essential (primary) hypertension Category: Medical Plan: Continue amlodipine. Plan Discussion Notes During the consultation, I explained the nature and treatment options for atrial flutter, highlighting catheter ablation's high success rate. I detailed the risks, primarily focusing on potential procedural complications. We discussed timing and planned to pursue the procedure promptly, awaiting EP team availability. Consent involved an acknowledgment of her stable current state and agreement with the therapeutic approach. The patient expressed understanding and approval of the outlined plan, including intention to follow-up with electrophysiology services. Patient was informed and verbally consented to the use of an ambient scribe for clinic note documentation during this visit. Orders: Referrals Cardiac Electrophysiology Referral I48.92 - Unspecified atrial flutter Patient Instructions: - Continue current medications as directed. - Await contact for scheduling the ablation procedure. - Notify us immediately if experiencing significant symptoms such as chest pain, severe shortness of breath, or dizziness. - Follow any specific advice given by the EP team and adhere to scheduled follow-ups. - Engage in normal daily activities; avoid overexertion. - Remain on blood thinners unless otherwise advised. Coding Level of Care Code Est Pt Level 4 (41612) Complex EM visit Add On G2211 Diagnoses Typical atrial flutter I48.3 Ectopic atrial rhythm I49.1 PVC (premature ventricular contraction) I49.3 Diastolic dysfunction I51.89 Mitral annular calcification I05.9 Status post atrial septal defect closure Z87.74 Essential hypertension I10 CPT Codes EKG - CPT: [id number], Complete ([id number])
== END 2024-08-11 10:56 | disposition home or self-care (01) ==
LOC: HO.HCS 10:27
PROVIDERS: PCP Internal Medicine; Visit Provider Internal Medicine
DX: I48.3 Typical atrial flutter (principal); I49.1 Atrial premature depolarization; I49.3 Ventricular premature depolarization; I05.9 Rheumatic mitral valve disease, unspecified; I51.89 Other ill-defined heart diseases; Z87.74 Personal history of (corrected) congenital malformations of heart and circulatory system; I10 Essential (primary) hypertension
CPT/HCPCS: 93010; 99214; G2211

== ENCOUNTER → 2024-08-11 10:26 | Outpatient (BNVA) | payer MEDICARE, SELFPAY | PROVIDERS: PCP Internal Medicine; Visit Provider Internal Medicine | DX: I10 Essential (primary) hypertension (principal); I48.3 Typical atrial flutter; I49.1 Atrial premature depolarization; I49.3 Ventricular premature depolarization; I51.89 Other ill-defined heart diseases; I48.92 Unspecified atrial flutter; R00.2 Palpitations; Z87.74 Personal history of (corrected) congenital malformations of heart and circulatory system | CPT/HCPCS: 93005; 99212 ==